=== PATIENT | female | born 1950 | race Caucasian/White ===

== ENCOUNTER 2017-05-10 09:08 | Inpatient (IN) ==
[2017-05-10] MEDS ORDERED: 0.9 % Sodium Chloride 1,000 ML ONE ×2 (10:48→12:14)
[2017-05-10] MEDS ORDERED: Heparin 1,000 UNITS/500 mL NS 0 ML ONE (12:14)
[2017-05-10] MEDS ORDERED: *HR* Heparin 10,000 UNIT/10 ML VIAL ONE (12:14)
--- NOTE | 2017-05-10 12:33 | History & Physical Report ---
Date of Encounter: 05/10/17 Time of Encounter: 12:32 24 Hour HP Update - Instructions Instructions: If the History and Physical is less than 30 days old and was completed prior to A.M. admission and or procedure and has NOT been updated on calendar day of procedure please complete this update prior to performing procedure. - Update Patient reports changes in Medical Condition: No Changes in examination, assessment, or condition: No Changes in Medication: No Preop tests/diagnostics Reviewed: Yes Surgery Remains Indicated: Yes Consent for Planned Operative Procedure(s) Verified: Yes - Pre-Operative Checklist Preoperative Checklist Indicated: No Prophylactic Antibiotic Ordered: No Home Medications Include Beta Jose Alberto: No Beta Jose Alberto Taken Today (Day of Surgery): No Beta Jose Alberto Taken Yesterday (Day Prior to Surgery): No Is VTE Prophylaxis Indicated?: NO
--- NOTE | 2017-05-10 12:33 | Pre-Sedation Evaluation ---
Pre-sedation evaluation - Pre-sedation checklist Date of procedure: 05/10/17 Procedure: FISTULOGRAM Recent Vitals: Last Vital Signs Temp 97.5 F L 05/10/17 10:24 Pulse 66 05/10/17 10:24 Resp 16 05/10/17 10:24 BP 126/54 05/10/17 10:24 Pulse Ox 96 05/10/17 10:24 H&P (including ROS) documented in medical record: Yes Previous reaction to sedatives/anesthetics: No Dietary Status: NPO after Midnight Dentition: No loose teeth or bridges ASA Classification *see protocol: CLASS III-Severe systemic disease Plan of Care: Pt appropriate candidate for procedure/moderate/conscious sedation , Risks/benefits of procedure/sedation discussed w/ patient/family
[2017-05-10] MEDS ORDERED: *HR* FentaNYL (PF) 100 MCG/2 ML VIAL ONE (13:06)
[2017-05-10] MEDS ORDERED: *HR* Midazolam HCl 2 MG/2 ML VIAL ONE (13:07)
[2017-05-10] MEDS ORDERED: Ondansetron 4 MG/2 ML VIAL IVP PRN (13:51)
[2017-05-10] MEDS ORDERED: *HR* HYDROcodone/Acet 5/325 mg TABLET PO PRN (13:51)
[2017-05-10] MEDS ORDERED: Acetaminophen 325 MG TABLET PO PRN (13:51)
--- NOTE | 2017-05-10 13:51 | Procedure Note ---
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
[2017-05-10] MEDS ORDERED: ceFAZolin 2,000 MG in D5% in Water 100 ML IVPB ONE (14:17)
--- NOTE | 2017-05-10 15:46 | Invasive Diagnostic Lab Proc ---
Name: Gurjit Schroeder Date of Study: 05/10/2017 Date: 1950 Ht: 157.5 in Medical Record#: [id number] Age: 67 Wt: 56.33653 lb Gender: Female BSA: 1.57 Order #: [id number] BMI: 22.86 Physicians Performing MD: Bolivar Jackson MD, FACS Referring MD: Nii Scott DO Referring MD: Staff Name Position Time In Keerthi Gupta RT (R) Pre-Op Nurse Xena Salazar RN Pre-Op Nurse Cassia Hoover RT (R) Scrub Sahara Suarez RN Monitor Lisbeth Medrano RN Machine Straw Hat Presser Lisbeth Medrano RN Machine Straw Hat Presser Indications AV Fistula Procedures Performed INJECT PROC FOR EXT VENOGRAPHY Pre-Procedure Checklist Informed consent is complete signed and on chart. H&P is on chart. ID band is on and ID verified with patient. Patient NPO for procedure The procedure was described for the patient and questions were answered. Blood Pressure: 126/54 ECG is on chart. Rhythm: NSR Plan of Care Patient will tolerate the procedure without complications. Adequate level of comfort will be maintained. Hemodynamics will remain stable Patient will recover from procedure without complications. Respiratory function will be maintained. Cardiac rhythm will remain stable. Patient temperature will be maintained. Patient and/or family have verbalized understanding of the procedure. Patient Education Chief Complaint/Reason for Test: Fistulagram Developmental Category: Geriatric (65+ years) Learning Barriers: None Education Needs: Procedure Education Method: Verbal Information Taught: Fistulagram Educational Evaluation: Able to repeat information Intravenous Access Time IV Size Location DC'd Fluid/Drip Rate Units RN 11:12 Started with 22g 1 " Rt Arm 0.9NaCl 25 ml/hr Xena Salazar RN Allergies SULFA (sulfonamide) PCN (penicillin) Sulfa (Sulfonamide Antibiotics) Amoxicillin NO KNOWN ALLERGIES Vital Signs Time BP Systolic BP Diastolic HR O2 Sats ASA 11:12 AM 126 54 66 96 01:10 PM 01:10 PM 01:26 PM 01:41 PM 01:42 PM 01:10 PM 158 69 78 97 01:15 PM 149 64 75 94 01:20 PM 148 64 75 94 01:25 PM 141 62 69 96 01:30 PM 150 66 72 93 01:35 PM 152 66 74 94 01:40 PM 152 65 72 92 01:45 PM 155 65 72 94 01:50 PM 153 74 76 93 02:22 PM 148 70 64 95 02:45 PM 140 70 65 98 03:08 PM 140 60 65 95 03:19 PM 151 64 66 95 03:37 PM 141 77 63 91 Procedure Medications Time Medication Dose Units Method Route 01:10 PM Oxygen 2 L/min nasal cannula 01:10 PM Versed 1 mg Intravenous 01:10 PM Fentanyl 50 mcg Intravenous 01:17 PM Lidocaine 2% 10 ml Subcutaneous 01:30 PM Fentanyl 25 mcg Intravenous ASA Classification: CLASS III- Severe systemic disease (i.e. prior AMI, diabetes with vascular complications, morbid obesity) Benjy Score Preprocedure Postprocedure Activity 2- Moves 4 extremities sustained head lift Activity 2- Moves 4 extremities sustained head lift Circulation 2- SBP +/= 20 points of pre-anesthetic level Circulation 2- SBP +/= 20 points of pre-anesthetic level Consciousness 2- Awake and alert oriented x 3 Consciousness 2- Awake and alert oriented x 3 O2 Saturation 2- Able to maintain O2 satruation of 92% on room air O2 Saturation 2- Able to maintain O2 satruation of 92% on room air Respiratory 2- Able to deep breathe and cough well Respiratory 2- Able to deep breathe and cough well Total Score 10 Total Score 10 Contrast: Isovue 300- 150ml Contrast Amount: 25 ml Fluoro Dose: 37 mGy Procedure Log Time Note Entered By 12:58 PM Cassia Hoover RT (R) Position: Scrub Time in: 12:58 [facility] 01:06 PM Sahara Suarez RN Position: Monitor [facility]: 12:58 [email or web address] Lisbeth eMdrano RN Position: Machine Straw Hat Presser Time in: 13:06 [facility] Patrick Bonilla RN Position: Machine Straw Hat Presser Time in: 13:06 [facility] PM Case delayed: previous case ran long [facility] 01:07 PM Hair removed from procedure site in holding area using clippers. Right groin prepped with Chloraprep by Cassia Hoover RT (R), safety strap applied then patient was draped. Skin intact. [facility] 12:58 PM Physician arrived [facility] 01:00 PM Meet and greet completed [facility] 01:09 PM Procedure start 13:09 [facility] PM Sign in performed according to hospital policy. [email or web address] 01:10 PM 13:10 Oxygen at 2 L/min per nasal cannula by Patrick [facility] 01:10 PM 13:10 Versed 1 mg Intravenous Given by Patrick Bonilla RN 01:10 PM 13:10 Fentanyl 50 mcg Intravenous Given by Patrick Bonilla RN 01:10 PM Time: 13:10 Is patient comfortable and pain free?: Yes [email or web address] 01:10 PM Time: 13:10LOC: 5 = Fully awake and oriented or at pre-proc level [email or web address] 01:14 PM Time out perfomed [facility] 01:17 PM 13:17 10 ml Lidocaine 2% to right groin Subcutaneous Given By Bolivar Jackson MD, FACS [facility] 01:18 PM Patient charges- Angio tray pack, Pulse Oximetry and ACIST tubing and transducer jcpaul 01:19 PM Access obtained in the right femoral artery by percutaneous puncture. 5 Fr. 10 cm Terumo [place] sheath placed in right femoral artery [facility] 01:20 PM 0.035 260cm J-wire wire utilized to assist with catheter placement jcallpaul 01:21 PM 5Fr Salmon 2 catheter inserted over the wire [facility] 01:23 PM Left subclavian angiography performed in [place] [facility] 01:25 PM 0.035 260cm [place]-stiff wire utilized to assist with catheter placement jcallnaomie 01:26 PM Time: 13:10LOC: 4 = Oriented but drowsy jcallihpaul 01:27 PM Right upper extremity angiography performed in multiple views jcallihpaul 01:31 PM 13:30 Fentanyl 25 mcg Intravenous Given by Patrick Bonilla RN 01:36 PM 5Fr Salmon 2 catheter removed [email or web address] 01:36 PM 4Fr Non-taper Angle glidecath catheter inserted jcallihpaul 01:37 PM 4Fr Non-taper Angle glidecath catheter removed [email or web address] 01:38 PM 4Fr Berenstein catheter inserted [email or web address] 01:41 PM Time: 13:26LOC: 4 = Oriented but drowsy jcallihan 01:42 PM Time: 13:10 Is patient comfortable and pain free?: Yes [email or web address] 01:44 PM wire and catheter removed jcallihan 12:44 PM catheter removed jcallihan 01:45 PM Procedure completed at 13:45 [email or web address] 01:47 PM Sign Out completed: Radiation Dose 37.19 mGy Fluoro Time: 5.9 minutes. Isovue 370- 200ml contrast 25 ml given by Bolivar Jackson MD, FACS. Complications: None. Confirmed administered medications:Yes jcallihan 01:47 PM Isovue 300- 150ml,1 bottle(s) used. [email or web address] 01:48 PM Post Blood Pressure: 155/65 jcallihan 01:48 PM Post EKG: NSR jcallihan 01:49 PM 13:48 Post Pulses: Bilateral DP & PT Doppler. [email or web address] 01:49 PM Education needs: Procedure, Plan of Care, and Disease Process jcallihan 01:49 PM Learning barriers: None jcallihan 01:49 PM Education methods: Verbal jcallihan 01:49 PM Education evaluation: Able to repeat information jcallihan 01:49 PM Patient pain level 0/10 [email or web address] 01:50 PM Site status No bleeding/hematoma - Rt Groin as reported by Cassia Hoover RT (R) at 13:49 [email or web address] 01:50 PM Sheath left in place to be pulled on floor/holding area jcallihan 01:50 PM Opsite applied jcallihan 01:50 PM Pt taken to Holding room Room# jcallihan 01:52 PM Family placed in consult room. [email or web address] 01:52 PM Complications: None jcallihan 01:53 PM Isovue 300- 150ml contrast 25 ml given by Bolivar Jackson MD, FACS jcallihan 01:53 PM Radiation Dose 37.19 mGy jcallihan 01:54 PM Patient out of room 13:54 [email or web address] 01:57 PM Time: 13:42 Is patient comfortable and pain free?: Yes [email or web address] 01:57 PM Time: 13:42LOC: 4 = Oriented but drowsy jcallihan 12:47 PM CathStat 01:09 PM Case Start 01:09 PM Vitals capture started with the following parameters, Patient=Adult, Interval=5 min, Initial Fuxunovx=780 mmHg, Deflation Rate=5 mmHg, Cuff placed on Right Arm 01:10 PM HR=78 bpm, VYGO=368/69 mmhg, SpO2=97.0 %, Resp=18 B/min, Comment=nsr 01:12 PM Recorded ECG: HR=79 Condition=Condition 1 01:13 PM PVIStat 01:15 PM HR=75 bpm, YHSM=826/64 mmhg, SpO2=94.0 %, Resp=19 B/min, Comment=nsr 01:20 PM HR=75 bpm, MLJX=495/64 mmhg, SpO2=94.0 %, Resp=19 B/min, Comment=nsr 01:25 PM HR=69 bpm, NCHN=011/62 mmhg, SpO2=96.0 %, Resp=12 B/min, Comment=nsr 01:30 PM HR=72 bpm, GMRE=003/66 mmhg, SpO2=93.0 %, Resp=13 B/min, Comment=nsr 01:35 PM HR=74 bpm, GFFB=640/66 mmhg, SpO2=94.0 %, Resp=18 B/min, Comment=nsr 01:40 PM HR=72 bpm, RCXZ=046/65 mmhg, SpO2=92.0 %, Resp=13 B/min, Comment=nsr 01:45 PM HR=72 bpm, KNEX=079/65 mmhg, SpO2=94.0 %, Resp=15 B/min, Comment=nsr 01:48 PM Recorded ECG: HR=77 Condition=Condition 1 01:50 PM HR=76 bpm, KPJW=710/74 mmhg, SpO2=93.0 %, Resp=22 B/min, Comment=nsr 02:05 PM Arterial sheath pulled using manual compression and V+Pad for 15 minutes by Keerthi Gupta RT (R) [email or web address] 02:20 PM Site status No bleeding/hematoma - Rt Groin as reported by Keerthi Gupta RT (R) at 14:20 [email or web address] 02:20 PM Opsite applied [email or web address] 03:36 PM Site status No bleeding/hematoma - Rt Groin as reported by Keerthi Gupta RT (R) at 15:36 [email or web address] 03:36 PM Report given to Pedrito RN. Pt taken to [facility], Room # 18 15:36 [email or web address] 03:37 PM Patient out of room 15:37 [email or web address] Post Procedure Information Blood Pressure: 155/65 mmHg Rhythm: NSR Report Given To: Vivi Magaña Checks Time Location Status Staff Sheath In? Note 3:36:00 PM Rt Groin No bleeding/ No Hematoma Keerthi Gupta RT (R) 2:20:00 PM Rt Groin No bleeding/ No Hematoma Keerthi Gupta RT (R) 05/10/2017 2:45:00 PM Rt Groin No bleeding/ No Hematoma Keerthi Gupta RT (R) 05/10/2017 3:06:00 PM Rt Groin No bleeding/ No Hematoma Keerthi Gupta RT (R) 05/10/2017 3:37:00 PM Rt Groin No bleeding/ No Hematoma Keerthi Gupta RT (R) 05/10/2017 3:37:00 PM Pulses Time Site Pre Procedure Post Procedure Note 05/10/2017 11:12:00 AM Bilateral DP & PT Doppler 05/10/2017 11:12:00 AM Rt Radial 2+ 05/10/2017 11:12:00 AM Lt Radial Doppler 1:48:00 PM Bilateral DP & PT Doppler 05/10/2017 2:21:00 PM Bilateral DP & PT Doppler 05/10/2017 2:45:00 PM Bilateral DP & PT Doppler 05/10/2017 3:08:00 PM Bilateral DP & PT Doppler 05/10/2017 3:19:00 PM Bilateral DP & PT Doppler 05/10/2017 3:37:00 PM Bilateral DP & PT Doppler Updated by RT Yasmine(Shirley) on 05/10/2017 3:38:00 PM electronically signed on 05/10/2017 3:39:04 PM with status of Final
--- NOTE | 2017-05-10 16:19 | Invasive Diagnostic Lab Proc ---
Name: Gurjit Schroeder Date of Study: 05/10/2017 Date: 1950 Ht: 157.5 in Medical Record#: [id number] Age: 67 Wt: 56.75145 lb Gender: Female BSA: 1.57 Order #: [id number] BMI: 22.86 Physicians Performing MD: Bolivar Jackson MD, FACS Referring MD: Nii Scott DO Referring MD: Staff Name Position Time In Keerthi Gupta RT (R) Pre-Op Nurse Xena Salazar RN Pre-Op Nurse Cassia Hoover RT (R) Scrub Sahara Saurez RN Monitor Lisbeth Medrano RN Cbx Operator Lisbeth Medrano RN Cbx Operator Indications AV Fistula Procedures Performed ANGIOGRAM, EXT UNILAT S&I CATH PLCT 2/ ORD THOR/BRA ADD Pre-Procedure Checklist Informed consent is complete signed and on chart. H&P is on chart. ID band is on and ID verified with patient. Patient NPO for procedure The procedure was described for the patient and questions were answered. Blood Pressure: 126/54 ECG is on chart. Rhythm: NSR Plan of Care Patient will tolerate the procedure without complications. Adequate level of comfort will be maintained. Hemodynamics will remain stable Patient will recover from procedure without complications. Respiratory function will be maintained. Cardiac rhythm will remain stable. Patient temperature will be maintained. Patient and/or family have verbalized understanding of the procedure. Patient Education Chief Complaint/Reason for Test: Fistulagram Developmental Category: Geriatric (65+ years) Learning Barriers: None Education Needs: Procedure Education Method: Verbal Information Taught: Fistulagram Educational Evaluation: Able to repeat information Intravenous Access Time IV Size Location DC'd Fluid/Drip Rate Units RN 11:12 Started with 22g 1 " Rt Arm 0.9NaCl 25 ml/hr Xena Salazar RN Allergies SULFA (sulfonamide) PCN (penicillin) Sulfa (Sulfonamide Antibiotics) Amoxicillin NO KNOWN ALLERGIES Vital Signs Time BP Systolic BP Diastolic HR O2 Sats ASA 11:12 AM 126 54 66 96 01:10 PM 01:10 PM 01:26 PM 01:41 PM 01:42 PM 01:10 PM 158 69 78 97 01:15 PM 149 64 75 94 01:20 PM 148 64 75 94 01:25 PM 141 62 69 96 01:30 PM 150 66 72 93 01:35 PM 152 66 74 94 01:40 PM 152 65 72 92 01:45 PM 155 65 72 94 01:50 PM 153 74 76 93 02:22 PM 148 70 64 95 02:45 PM 140 70 65 98 03:08 PM 140 60 65 95 03:19 PM 151 64 66 95 03:37 PM 141 77 63 91 Procedure Medications Time Medication Dose Units Method Route 01:10 PM Oxygen 2 L/min nasal cannula 01:10 PM Versed 1 mg Intravenous 01:10 PM Fentanyl 50 mcg Intravenous 01:17 PM Lidocaine 2% 10 ml Subcutaneous 01:30 PM Fentanyl 25 mcg Intravenous ASA Classification: CLASS III- Severe systemic disease (i.e. prior AMI, diabetes with vascular complications, morbid obesity) Benjy Score Preprocedure Postprocedure Activity 2- Moves 4 extremities sustained head lift Activity 2- Moves 4 extremities sustained head lift Circulation 2- SBP +/= 20 points of pre-anesthetic level Circulation 2- SBP +/= 20 points of pre-anesthetic level Consciousness 2- Awake and alert oriented x 3 Consciousness 2- Awake and alert oriented x 3 O2 Saturation 2- Able to maintain O2 satruation of 92% on room air O2 Saturation 2- Able to maintain O2 satruation of 92% on room air Respiratory 2- Able to deep breathe and cough well Respiratory 2- Able to deep breathe and cough well Total Score 10 Total Score 10 Contrast: Isovue 300- 150ml Contrast Amount: 25 ml Fluoro Dose: 37 mGy Procedure Log Time Note Entered By 12:58 PM Cassia Hoover RT (R) Position: Scrub Time in: 12:[address] [facility] PM Sahara Suarez RN Position: Monitor Time in: 12:[address] [facility] 01[facility]06 PM Lisbeth Medrano RN Position: Cbx Operator Time in: 13: [facility] PM Patrick Bonilla RN Position: Cbx Operator Time in: 13:06 [facility] 01:07 PM Case delayed: previous case ran long [facility] 01:07 PM Hair removed from procedure site in holding area using clippers. Right groin prepped with Chloraprep by Cassia Hoover RT (R), safety strap applied then patient was draped. Skin intact. [facility] 12:58 PM [facility] PM Harshal and ned [facility] PM Procedure start 13:[address] [facility] PM Sign in performed according to hospital policy. [facility] 01:10 PM 13:10 Oxygen at 2 L/min per nasal cannula by [facility] 01:10 PM 13:10 Versed 1 mg Intravenous Given by Patrick Bonilla RN 01:10 PM 13:10 Fentanyl 50 mcg Intravenous Given by Patrick [facility]illa [facility] 01:10 PM Time: 13:10 Is patient comfortable and pain free?: Yes [facility] PM Time: 13:10LOC: 5 = Fully awake and oriented or at pre-proc level [facility] 01[facility]14 PM Time out perfomed [facility] 01:17 PM 13:17 10 ml Lidocaine 2% to right groin Subcutaneous Given By Bolivar Jackson MD, FACS [facility] 01:18 PM Patient charges- Angio tray pack, Pulse Oximetry and ACIST tubing and transducer [facility] 01[facility] PM Access obtained in the right femoral artery by percutaneous puncture. 5 Fr. 10 cm Terumo [place] sheath placed in right femoral artery [facility] 01:20 PM 0.035 260cm J-wire wire utilized to assist with catheter placement [facility] 01:21 PM 5Fr Salmon 2 catheter inserted over the wire [facility] 01:23 PM Left subclavian angiography performed in KAYLEN [facility] 01:25 PM 0.035 260cm [place]-stiff wire utilized to assist with catheter placement [facility] 01:26 PM Time: 13:10LOC: 4 = Oriented but drowsy [facility] 01:27 PM Right upper extremity angiography performed in multiple views [facility] 01:31 PM 13:30 Fentanyl 25 mcg Intravenous Given by Patrick [facility] 01:36 PM 5Fr Salmon 2 catheter [facility] 01:36 PM 4Fr Non-taper Angle glidecath catheter inserted [facility] 01:37 PM 4Fr Non-taper Angle glidecath catheter [facility] 01:38 PM 4Fr Berenstein catheter inserted [facility] 01:41 PM Time: 13:26LOC: 4 = Oriented but drowsy jcallihan 01:42 PM Time: 13:10 Is patient comfortable and pain free?: Yes jcallihan 01:44 PM wire and catheter removed jcallihan 12:44 PM catheter removed jcallihan 01:45 PM Procedure completed at 13:45 jcallihan 01:47 PM Sign Out completed: Radiation Dose 37.19 mGy Fluoro Time: 5.9 minutes. Isovue 370- 200ml contrast 25 ml given by Bolivar Jackson MD, FACS. Complications: None. Confirmed administered medications:Yes jcallihan 01:47 PM Isovue 300- 150ml,1 bottle(s) used. jcallihan 01:48 PM Post Blood Pressure: 155/65 jcallihan 01:48 PM Post EKG: NSR jcallihan 01:49 PM 13:48 Post Pulses: Bilateral DP & PT Doppler. jcallihan 01:49 PM Education needs: Procedure, Plan of Care, and Disease Process jcallihan 01:49 PM Learning barriers: None jcallihan 01:49 PM Education methods: Verbal jcallihan 01:49 PM Education evaluation: Able to repeat information jcallihan 01:49 PM Patient pain level 0/10 jcallihan 01:50 PM Site status No bleeding/hematoma - Rt Groin as reported by Cassia Hoover RT (R) at 13:49 [email or web address] 01:50 PM Sheath left in place to be pulled on floor/holding area jcallihan 01:50 PM Opsite applied jcallihan 01:50 PM Pt taken to Holding room Room# jcallihan 01:52 PM Family placed in consult room. [email or web address] 01:52 PM Complications: None jcallihan 01:53 PM Isovue 300- 150ml contrast 25 ml given by Bolivar Jackson MD, FACS jcallihan 01:53 PM Radiation Dose 37.19 mGy jcallihan 01:54 PM Patient out of room 13:54 jcallihan 01:57 PM Time: 13:42 Is patient comfortable and pain free?: Yes [email or web address] 01:57 PM Time: 13:42LOC: 4 = Oriented but drowsy jcallihan 12:47 PM CathStat 01:09 PM Case Start 01:09 PM Vitals capture started with the following parameters, Patient=Adult, Interval=5 min, Initial Hhcnhfhi=154 mmHg, Deflation Rate=5 mmHg, Cuff placed on Right Arm 01:10 PM HR=78 bpm, FGYO=368/69 mmhg, SpO2=97.0 %, Resp=18 B/min, Comment=nsr 01:12 PM Recorded ECG: HR=79 Condition=Condition 1 01:13 PM PVIStat 01:15 PM HR=75 bpm, FEWC=138/64 mmhg, SpO2=94.0 %, Resp=19 B/min, Comment=nsr 01:20 PM HR=75 bpm, MRPY=987/64 mmhg, SpO2=94.0 %, Resp=19 B/min, Comment=nsr 01:25 PM HR=69 bpm, WURK=132/62 mmhg, SpO2=96.0 %, Resp=12 B/min, Comment=nsr 01:30 PM HR=72 bpm, FLJF=251/66 mmhg, SpO2=93.0 %, Resp=13 B/min, Comment=nsr 01:35 PM HR=74 bpm, EUKT=241/66 mmhg, SpO2=94.0 %, Resp=18 B/min, Comment=nsr 01:40 PM HR=72 bpm, ZGNS=914/65 mmhg, SpO2=92.0 %, Resp=13 B/min, Comment=nsr 01:45 PM HR=72 bpm, WRZG=546/65 mmhg, SpO2=94.0 %, Resp=15 B/min, Comment=nsr 01:48 PM Recorded ECG: HR=77 Condition=Condition 1 01:50 PM HR=76 bpm, SYPR=760/74 mmhg, SpO2=93.0 %, Resp=22 B/min, Comment=nsr 02:05 PM Arterial sheath pulled using manual compression and V+Pad for 15 minutes by Keerthi Gupta RT (R) [email or web address] 02:20 PM Site status No bleeding/hematoma - Rt Groin as reported by Keerthi Gupta RT (R) at 14:20 [email or web address] 02:20 PM Opsite applied [email or web address] 03:36 PM Site status No bleeding/hematoma - Rt Groin as reported by Keerthi Gupta RT (R) at 15:36 [email or web address] 03:36 PM Report given to Pedrito ZAVALA. Pt taken to E, Room # 18 15:36 [email or web address] 03:37 PM Patient out of room 15:37 [email or web address] 04:12 PM Diagram Region: Upper Extremity/Thoracic Arteries Anatomical Region: UE/Thoracic-Twu535% Lesion in Proximal Left Brachial Intervention done: 0 (1=yes, 0=no) pvannoy Peripheral Anatomy Vessel Pathology Lesion Stenosis Aneurysm Diameter Thrombus Type Left Brachial Lesion 100 Post Procedure Information Blood Pressure: 155/65 mmHg Rhythm: NSR Report Given To: Vivi Site Checks Time Location Status Staff Sheath In? Note 3:36:00 PM Rt Groin No bleeding/ No Hematoma Keerthi Gupta RT (R) 2:20:00 PM Rt Groin No bleeding/ No Hematoma Keerthi Gupta RT (R) 05/10/2017 2:45:00 PM Rt Groin No bleeding/ No Hematoma Keerthi Gupta RT (R) 05/10/2017 3:06:00 PM Rt Groin No bleeding/ No Hematoma Keerthi Gupta RT (R) 05/10/2017 3:37:00 PM Rt Groin No bleeding/ No Hematoma Keerthi Gupta RT (R) 05/10/2017 3:37:00 PM Pulses Time Site Pre Procedure Post Procedure Note 05/10/2017 11:12:00 AM Bilateral DP & PT Doppler 05/10/2017 11:12:00 AM Rt Radial 2+ 05/10/2017 11:12:00 AM Lt Radial Doppler 1:48:00 PM Bilateral DP & PT Doppler 05/10/2017 2:21:00 PM Bilateral DP & PT Doppler 05/10/2017 2:45:00 PM Bilateral DP & PT Doppler 05/10/2017 3:08:00 PM Bilateral DP & PT Doppler 05/10/2017 3:19:00 PM Bilateral DP & PT Doppler 05/10/2017 3:37:00 PM Bilateral DP & PT Doppler Updated by Sahara Suarez RN on 05/10/2017 4:13:08 PM electronically signed on 05/10/2017 4:13:49 PM with status of Final
[2017-05-10] MEDS ORDERED: Furosemide 20 MG TABLET PO PRN (17:07)
[2017-05-10] MEDS ORDERED: Nitroglycerin 0.4 MG TAB.SUBL SL PRN (17:14)
[2017-05-10] MEDS: 0.9 % Sodium Chloride 1,000 ML IVC SCH ×2 (17:19→18:35)
[2017-05-10] MEDS ORDERED: FLUARIX QUAD 2017-18 36MOS UP/PF 0.5 ML SYRINGE IM ONE (17:34)
[2017-05-10] MEDS ORDERED: NIFEdipine XL (24 HR) 30 MG TAB.ER.24 PO SCH (18:00)
[2017-05-10] MEDS: Nicotine 21 MG PATCH.TD24 TD SCH (18:34)
[2017-05-10] MEDS: *HR* Acetylcysteine 20% 600 MG/3 ML ORAL SYRINGE PO SCH (18:43)
[2017-05-10] MEDS: *HR* LORazepam 1 MG TABLET PO PRN (20:33)
--- NOTE | 2017-05-10 20:47 | Anesthesia Evaluation PreOp ---
Date of Encounter: 05/10/17 Time of Encounter: 20:46 - Past History Planned Operation: Left brachial artery embolectomy Cardiac History: CHF, HTN, Hyperlipidemia, Other (peripheral vascular disease) Pulmonary History: Smoker SCALLOP BINDER History: Denies Any Significant HX Other Medical History: Renal (Stage IV ckd - never been on dialysis), Thyroid Anesthesia History: No Prior Anesthetic Complications, Past Anesthesia (AV fistula creation) Alcohol Use: none Drug use: none Medications and Allergies Aspirin 81 mg PO DAILY 05/10/17 [History] Atorvastatin [Lipitor] 40 mg PO HS 05/10/17 [History] Carvedilol [Coreg] 25 mg PO BID 05/10/17 [History] Cholecalciferol (Vitamin D3) [Vitamin D3] 5,000 unit PO DAILY 05/10/17 [History] Furosemide [Lasix] 20 mg PO DAILY 05/10/17 [History] Isosorbide MONOnitrate (24 HR) [Imdur] 60 mg PO DAILY 05/10/17 [History] LORazepam [Ativan] 1 mg PO BID 05/10/17 [History] Levothyroxine [Synthroid] 50 mcg PO 0630 05/10/17 [History] Magnesium Oxide [Magnesium] 400 mg PO DAILY 05/10/17 [History] NIFEdipine [Adalat cc] 30 mg PO QPM 05/10/17 [History] NIFEdipine [Adalat cc] 60 mg PO DAILY 05/10/17 [History] Nitroglycerin [Nitrostat] 0.4 mg SL DAILY 05/10/17 [History] Potassium Chloride [K-Tab ER] 10 meq PO DAILY PRN 05/10/17 [History] 3 Allergy/AdvReac Type Severity Reaction Status Date / Time Amoxicillin Allergy Difficulty Verified 04/19/17 14:33 Swallowing Sulfa (Sulfonamide Allergy Difficulty Verified 04/19/17 14:33 Antibiotics) Swallowing - Meds/Allergy Pre-op Review Medications Reviewed: Yes Allergies Reviewed: Yes Beta Blockers on Current Med List: Yes (coreg) Anesthesia Results - Labs Laboratory Tests 05/07/17 05/07/17 05/07/17 15:34 15:34 15:34 WBC 7.6 Hgb 12.7 Hct 37.5 Plt Count 264 PT 12.4 H INR 1.1 APTT 44.5 H Sodium 138 Potassium 4.4 Chloride 106 Carbon Dioxide 22 BUN 30 H Creatinine 1.98 H Est GFR ( Amer) 30 L Est GFR (Non-Af Amer) 25 L BUN/Creatinine Ratio 15 Glucose 89 Calculated Osmolality 292 Calcium 9.7 - Imaging EKG: report reviewed, image reviewed (SINUS RHYTHM POSSIBLE INFERIOR MYOCARDIAL INFARCTION, OF INDETERMINATE AGE MODERATE T-WAVE ABNORMALITY, CONSIDER LATERAL ISCHEMIA) Anesthesia Exam Last Vital Signs Temp 98.1 F 05/10/17 16:50 Pulse 66 05/10/17 16:50 Resp 12 05/10/17 16:50 BP 157/63 05/10/17 16:50 Pulse Ox 92 05/10/17 16:50 Weight: 57 kg - HEENT Pupil (Motor): Pupils equal, EOMI Mallampati: II Teeth: Poor dentition Oral Opening: Greater than 3 - SCALLOP BINDER LOC: Oriented - Cardiac Rhythm: Regular Murmur: Systolic (low grade) - Pulmonary Breath Sounds: bilateral Clear Respiratory Effort: Symmetrical Anesthesia Assess/Plan ASA Score: 3 Modified Nichole Scale for Level of Consciousness: Cooperative, oriented, and tranquil Anesthetic Plan: General Monitoring Plan: Standard Monitors Recovery Plan: PACU
[2017-05-11] MEDS: *HR* Acetylcysteine 20% 600 MG/3 ML ORAL SYRINGE PO SCH (02:00)
[2017-05-11] MEDS ORDERED: Cholecalciferol (D-3) 1,000 UNIT TABLET PO SCH (09:00)
[2017-05-11] MEDS ORDERED: Magnesium Oxide 400 MG TABLET PO SCH (09:00)
[2017-05-11] MEDS ORDERED: Isosorbide MONOnitrate (24 HR) 60 MG TAB.ER.24H PO SCH (09:00)
[2017-05-11] MEDS ORDERED: NIFEdipine XL (24 HR) 60 MG TAB.ER.24 PO SCH (09:00)
[2017-05-11] MEDS ORDERED: Aspirin 81 MG TAB.CHEW PO SCH (09:00)
[2017-05-11] MEDS: Nicotine 21 MG PATCH.TD24 TD SCH (09:08)
[2017-05-11] MEDS: *HR* LORazepam 1 MG TABLET PO PRN (09:26)
--- NOTE | 2017-05-11 10:49 | Nephrology Consult Note ---
Date of Encounter: 05/11/17 Time of Encounter: 10:44 Assessment and Plan (1) Ischemia of left upper extremity Current Visit: Yes Status: Acute Agree with giving Mucomyst for renal protection Gentle fluid hydration for renal protection Surgery scheduled for today (2) Chronic kidney disease, stage IV (severe) Current Visit: Yes Status: Acute see above BMP today Avoid nephrotoxins if possible History of Present Illness - Reason for Consult Consult date: 05/11/17 - Chief Complaint left arm pain, CKD stage 4 - History of Present Illness Ms Schroeder is a 67 year old female who follows with Dr Patterson for her CKD stage 4. She has been admitted for a left brachial artery embolectomy scheduled for later today after having a fistulogram showing a brachial artery embolus. Past medical history include thyroid disease, CHF, HTN, hyperlipidemia, PVD. Past Med Surg Social Fam HX - Past Medical History Medical history: non-contributory, CHF, hyperlipidemia, hypertension, renal disease, thyroid disease Psychiatric history: anxiety - Social History Smoking Status: Current every day smoker Packs per day: 1 Smokeless Tobacco Status: No Alcohol use: none Drug use: none Medications and Allergies Aspirin 81 mg PO DAILY 05/10/17 [History] Atorvastatin [Lipitor] 40 mg PO HS 05/10/17 [History] Carvedilol [Coreg] 25 mg PO BID 05/10/17 [History] Cholecalciferol (Vitamin D3) [Vitamin D3] 5,000 unit PO DAILY 05/10/17 [History] Furosemide [Lasix] 20 mg PO DAILY 05/10/17 [History] Isosorbide MONOnitrate (24 HR) [Imdur] 60 mg PO DAILY 05/10/17 [History] LORazepam [Ativan] 1 mg PO BID 05/10/17 [History] Levothyroxine [Synthroid] 50 mcg PO 0630 05/10/17 [History] Magnesium Oxide [Magnesium] 400 mg PO DAILY 05/10/17 [History] NIFEdipine [Adalat cc] 30 mg PO QPM 05/10/17 [History] NIFEdipine [Adalat cc] 60 mg PO DAILY 05/10/17 [History] Nitroglycerin [Nitrostat] 0.4 mg SL DAILY 05/10/17 [History] Potassium Chloride [K-Tab ER] 10 meq PO DAILY PRN 05/10/17 [History] 3 Allergy/AdvReac Type Severity Reaction Status Date / Time Amoxicillin Allergy Difficulty Verified 04/19/17 14:33 Swallowing Sulfa (Sulfonamide Allergy Difficulty Verified 04/19/17 14:33 Antibiotics) Swallowing Review of Systems All Systems: reviewed and no additional remarkable complaints except as stated Constitutional: no fever(s), no malaise Cardiovascular: no chest pain, no dyspnea Respiratory: no cough Gastrointestinal: no nausea, no vomiting Musculoskeletal: left: wrist pain (left arm pain ) Exam - Vital Signs Vital signs: Initial Vital Signs Temp Pulse Resp BP Pulse Ox 97.5 F L 66 16 126/54 96 05/10/17 10:24 05/10/17 10:24 05/10/17 10:24 05/10/17 10:24 05/10/17 10:24 Vital Signs - Last 8 Hours Temp Pulse Resp BP Pulse Ox 05/11/17 06:31 98.2 F 68 12 148/64 92 05/11/17 04:43 68 16 150/79 97 Intake and Output 05/10/17 05/11/17 05/11/17 23:59 07:59 15:59 Intake Total 120 / 120 Output Total 300 / 300 150 / 150 Balance -180 / -180 -150 / -150 Intake: Oral 120 / 120 Output: Urine 300 / 300 150 / 150 Other: Meal Dinner Percent of Meal Consumed 80% # Voids 1 1 Weight 56.6 kg - General Appearance General appearance: well-developed, well-nourished EENT: ATNC, mucous membranes moist, hearing intact, vision intact Neck: supple Respiratory: clear Cardiology: no edema, normal S1, normal S2 - Dialysis Access Dialysis Vascular Access: Arteriovenous Fistula Gastrointestinal: no tenderness, no guarding Integumentary: warm and dry Neurologic: alert and oriented x3 Psychiatric: mood/affect appropriate, cooperative Consult Discharge Plan - Plan Referrals: Nii Scott DO [Primary Care Provider] -
[2017-05-11 11:25] LABS: Calcium 8.7 mg/dL (8.6-10.8); Potassium 4.2 mEq/L (3.5-4.5)
[2017-05-11] MEDS ORDERED: *HR* FentaNYL (PF) 100 MCG/2 ML VIAL ONE (14:46)
[2017-05-11] MEDS ORDERED: Dexamethasone 4 MG/ML VIAL ONE (14:46)
[2017-05-11] MEDS ORDERED: Lidocaine -MPF 4% 5 ML AMPUL ONE (14:46)
[2017-05-11] MEDS ORDERED: *HR* Succinylcholine 200 MG/10 ML VIAL IVP ONE (14:46)
[2017-05-11] MEDS ORDERED: Ondansetron 4 MG/2 ML VIAL ONE (14:46)
[2017-05-11] MEDS ORDERED: *HR* Propofol 200 MG/20 ML VIAL IVP ONE (14:46)
[2017-05-11] MEDS ORDERED: *HR* Midazolam HCl 2 MG/2 ML VIAL ONE (14:46)
[2017-05-11] MEDS ORDERED: Lidocaine -MPF 2% 2 ML VIAL ONE (14:46)
[2017-05-11] MEDS ORDERED: *HR* Rocuronium Bromide 50 MG/5 ML VIAL ONE (14:47)
[2017-05-11] MEDS ORDERED: Ipratropium/Albuterol Neb 3 ML ONE (14:57)
[2017-05-11] MEDS ORDERED: Heparin 1,000 UNITS/500 mL NS 500 ML ONE (14:58)
[2017-05-11] MEDS ORDERED: Lidocaine 1% 20 ML MDV ONE (14:58)
[2017-05-11] MEDS ORDERED: EPHEDrine 50 MG/ML VIAL ONE (15:30)
[2017-05-11] MEDS ORDERED: *HR* Heparin 5,000 UNIT/ML VIAL ONE (17:29)
--- NOTE | 2017-05-11 17:29 | Operative Note ---
Date of procedure: 05/11/17 Pre-op diagnosis: ischemic left arm Post-op diagnosis: same Procedure: left brachial/ulnar/radial embolectomy Complications: none Anesthesia: YGA Surgeon: Bolivar Jackson Estimated blood loss (cc): 75 Specimen: left brachial embolus Condition: stable Disposition: PACU Procedure in Detail: History Mrs. Schroeder is a 67-year-old white female who has stage IV chronic kidney disease. She had undergone creation of a left antecubital AV fistula approximately year and a half ago. In late March she had some irritation and swelling and redness to this area. She eventually went to interventional radiology in early April. She had a fistulogram performed as well as a balloon angioplasty of the cephalic vein runoff and thrombo-lysis. The patient developed pain in the left arm during the procedure. This persisted. She was in the office to see me late last week because of this persistent pain. I recommended an angiogram which was performed yesterday. The angiogram demonstrated occlusion of the brachial artery with no contrast in the radial vessel or ulnar vessel. Patient was thus admitted and was taken to surgery for an urgent operation today to alleviate her left upper extremity ischemia. Procedure After informed consent was obtained the patient was taken to the operating room. General endotracheal anesthesia was established. The left upper extremity was sterilely prepped and draped. A timeout protocol was observed. An oblique incision was made on the volar surface of the proximal forearm distal to the antecubital incision over the AV fistula was located. Dissection was carried down to reveal the brachial artery and the brachial artery bifurcation. There is a significant amount of inflammation surrounding the brachial artery and the bifurcation. There are no palpable pulse or Doppler signal at the distal brachial artery or in the proximal forearm vessels. Dissection was then made of these vessels and selective control obtained. Heparin was given a dose of 4000 units intravenously. After 3 minute delay a transverse arteriotomy was made over the distal brachial artery. Upon opening the vessel chronic thrombus and debris was found that was wedged into the brachial bifurcation. This material was removed with pickups. Then a 3 Danish Kay catheter was inserted into the radial artery which extended into the hand. After this was passed a small amount of debris was removed and backbleeding was established. This vessel was then flushed with heparinized saline. Attention was then directed to the radial and interosseous vessel. 2 and 3 Danish Kay catheters were passed and this vessel but they were unable to be passed any significant distance due to what appeared to be chronic occlusion. Some backbleeding was established from the radial artery. The 3 Danish Kay catheter was then passed retrograde into the proximal brachial artery. No further thrombus was removed with excellent pulsatile flow was achieved. Heparin saline was then back flushed into the brachial artery. The arteriotomy was then closed using a running 6-0 Prolene suture. After appropriate backbleeding and flushing the artery was opened. Pulsatile flow was then restored into the left forearm and hand. Doppler signals were identified over the distal left radial artery and in the midportion of the forearm over the ulnar artery. The fingertips were pink. The wound was then irrigated and hemostasis achieved. The wound was then closed in layers using absorbable suture. Dry sterile dressings were applied. The patient was excreted in the operating room. She was taken to the recovery room in stable condition. There were no intraoperative complications. Specimen of the brachial artery embolus was submitted for evaluation and pathology.
[2017-05-11] MEDS ORDERED: *HR* Morphine 2 MG/ML SYRINGE IVP PRN ×2 (18:08)
[2017-05-11] MEDS ORDERED: Naloxone 0.4 MG/ML INJ IVP PRN (18:08)
[2017-05-11] MEDS ORDERED: NIFEdipine XL (24 HR) 30 MG TAB.ER.24 PO SCH (18:08)
[2017-05-11] MEDS: *HR* LORazepam 1 MG TABLET PO SCH (20:24)
[2017-05-12] MEDS ORDERED: ceFAZolin 2,000 MG in D5% in Water 100 ML IVPB SCH
[2017-05-12 03:52] LABS: Basophils % 0.1 %; Hematocrit 34.9 % (35.3-44.9); Hemoglobin 11.5 g/dL (11.5-15.4); Immature Granulocytes % 0.4 % (0-4); Lymphocytes # 0.8 K/mcL (0.6-4.6); Lymphocytes % 10.6 %; Mean Corpuscular Hemoglobin 31.6 pg (28.0-33.3); Mean Corpuscular Volume 95.9 fL (83.0-100.0); Mean Platelet Volume 11.2 fL (9.4-12.4); Monocytes # 0.1 K/mcL (0.0-1.3); Monocytes % 1.2 %; Neutrophils # 6.6 K/mcL (1.6-8.9); Platelet Count 207 K/mcL (140-400); Red Blood Count 3.64 M/mcL (3.82-4.97); Red Cell Distribution Width 13.7 % (11.5-14.5); Segmented Neutrophils % 87.7 %
[2017-05-12 04:05] LABS: Calcium 8.7 mg/dL (8.6-10.8); Potassium 4.4 mEq/L (3.5-4.5)
[2017-05-12] MEDS: *HR* LORazepam 1 MG TABLET PO SCH (07:56)
--- NOTE | 2017-05-12 08:37 | Discharge Summary ---
Date of Encounter: 05/12/17 Time of Encounter: 08:34 - Discharge Diagnosis (1) Chronic kidney disease, stage IV (severe) Priority: Secondary Status: Chronic Comments: Patient has stage IV chronic kidney disease. Patient is being managed under medical care. She has never required dialysis to this point. (2) Ischemia of left upper extremity Priority: Primary Status: Acute Comments: Patient developed ischemia of left upper extremity following interventional radiology procedure for balloon angioplasty of cephalic vein. Patient was eventually referred to the vascular surgery clinic. Patient was seen last . Patient had an angiogram performed Wednesday. This led to the confirmation of my clinical diagnosis of brachial artery embolus. The patient was taken to the operating room yesterday. A successful brachial embolectomy was performed. Munith fit for discharge today. - Discharge Medications Prescriptions: HYDROcodone/Acet 5/325 mg [[place] 5-325 mg] 1 tab PO Q6H PRN #10 tab PRN Reason: Pain Home Medications: Aspirin 81 mg PO DAILY 05/10/17 [History] Atorvastatin [Lipitor] 40 mg PO HS 05/10/17 [History] Carvedilol [Coreg] 25 mg PO BID 05/10/17 [History] Cholecalciferol (Vitamin D3) [Vitamin D3] 5,000 unit PO DAILY 05/10/17 [History] Furosemide [Lasix] 20 mg PO DAILY 05/10/17 [History] Isosorbide MONOnitrate (24 HR) [Imdur] 60 mg PO DAILY 05/10/17 [History] LORazepam [Ativan] 1 mg PO BID 05/10/17 [History] Levothyroxine [Synthroid] 50 mcg PO 0630 05/10/17 [History] Magnesium Oxide [Magnesium] 400 mg PO DAILY 05/10/17 [History] NIFEdipine [Adalat cc] 30 mg PO QPM 05/10/17 [History] NIFEdipine [Adalat cc] 60 mg PO DAILY 05/10/17 [History] Nitroglycerin [Nitrostat] 0.4 mg SL DAILY 05/10/17 [History] Potassium Chloride [K-Tab ER] 10 meq PO DAILY PRN 05/10/17 [History] HYDROcodone/Acet 5/325 mg [[place] 5-325 mg] 1 tab PO Q6H PRN #10 tab 05/12/17 [Rx ] Allergies/Adverse Reactions: 3 Allergy/AdvReac Type Severity Reaction Status Date / Time Amoxicillin Allergy Difficulty Verified 04/19/17 14:33 Swallowing Sulfa (Sulfonamide Allergy Difficulty Verified 04/19/17 14:33 Antibiotics) Swallowing Procedures/tests Complete & Pending: Procedures Performed prior 72 hours Category Date Time Status CL Peripheral Angiography [CL] Routine Rheologist 05/10/17 10:56 Completed Primary care physician: Nii Scott DO Consults: Nephrology Procedure(s) Performed: Left upper extremity angiogram Left brachial artery and forearm vessel embolectomy Discharging clinician: Bolivar Jackson Anticipated date of discharge: 05/12/17 - Patient Status Disposition: Home, Self-Care Condition: Good Functional capacity at discharge: independent ambulation Overall status at discharge: patient is progressing back to baseline - Discharge Instructions Follow Up With: Nii Scott DO [Primary Care Provider] - 05/18/17 2:00 pm Bolivar Jackson MD [Partnered Physician] - 06/02/17 11:45 am Additional Instructions: No lifting greater than 10 pounds with left upper extremity. Keep surgical incision dry for total 5 days following surgery. Mireles redress left forearm incision as tolerated. - Diet and Activity Activity: increase activity as tolerated Diet: advance to your usual diet - Hospital Course Hospital course: Ms. Schroeder is a 67 year old female With chronic stage IV chronic kidney disease. The patient had an intervention of the cephalic vein of left antecubital AV fistula. She developed a brachial artery embolus. She eventually made her way to the vascular surgery clinic. She had an angiogram performed on Wednesday and surgery yesterday for brachial artery embolus. She had sabianism of Doppler signals and warm pink left hand and finger. She had increased muscle strength and elimination of her ischemic rest pain. Postprocedure BUN/creatinine reveal no change in her stage IV kidney disease. - Time Spent with Patient Total time spent providing and/or coordinating discharge services: Exam Vital Signs, Last 4 Hours Temp Pulse Resp BP Pulse Ox 05/12/17 07:45 98.0 F 69 18 143/64 95 General: Present: Conversant, No Apparent Distress Vascular: Present: Color/Temperature (Left hand and fingers warm and pink with less than 2 second capillary refill), Surgical incisions (Clean and dry), Other (Multiphasic Doppler signals at the ulnar and radial artery as well as in the distal palmar arch.) - VTE Documentation of Mechanical Device: Intermittent pneumatic compression device
[2017-05-12] MEDS ORDERED: Isosorbide MONOnitrate (24 HR) 60 MG TAB.ER.24H PO SCH (09:00)
[2017-05-12] MEDS ORDERED: Aspirin 81 MG TAB.CHEW PO SCH (09:00)
[2017-05-12] MEDS ORDERED: Nitroglycerin 0.4 MG TAB.SUBL SL SCH (09:00)
[2017-05-12] MEDS ORDERED: NIFEdipine XL (24 HR) 60 MG TAB.ER.24 PO SCH (09:00)
[2017-05-12] MEDS ORDERED: Cholecalciferol (D-3) 1,000 UNIT TABLET PO SCH (09:00)
[2017-05-12] MEDS ORDERED: Magnesium Oxide 400 MG TABLET PO SCH (09:00)
[2017-05-12] MEDS ORDERED: Furosemide 20 MG TABLET PO SCH (09:00)
== END 2017-05-12 13:59 | disposition home or self-care (01) | DRG 253 ==
LOC: INVDIALAB 09:08 → 2NENU 13:55
PROVIDERS: ADMIT Surgery Vascular Surgery; ATTEND Surgery Vascular Surgery
PROC: VASEMBO (2017-05-11 17:30)

== ENCOUNTER 2018-05-17 00:43 | Inpatient (IN) ==
--- NOTE | 2018-05-17 04:37 | Internal Med History&Physical ---
Addendum entered and electronically signed by Ok Mcmahon MD 05/17/18 07:18: I saw and evaluated the patient. I reviewed the residents note, performed my own physical examination and agree with findings and plan as documented in the residents note. Patient seen and examined on 05/17/18. Patient presents with acute hypoxic respiratory failure, possibly related to CHF exacerbation. Patient also has slight bump in her creatinine from her baseline, as well as a bump in troponin to 0.12. Will continue to trend troponins, could be due to demand ischemia. Echocardiogram in the morning as well. Original Note: Date of Encounter: 05/17/18 Time of Encounter: 04:34 Internal Medicine - H&P: HPI Chief complaint: Shortness of breath Admitted From: Home History of present illness: Ms. Schroeder is a 68-year-old female with a PMH of CHF, hypertension, renal disease who presented to [facility] on 05/17/18 with a chief complaint of difficulty breathing. Patient reported having been short of breath for 3-1/2 hours. Told EMS that she had a slight cough with white sputum production. Patient was satting at a 78% on room air. She was given a nebulizer treatment, placed on O2 mask. O2 sat subsequently improved to 89-90%. Patient had swelling of her eyes and face that developed during transport. Patient became more dyspneic and anxious. Patient was treated with Solu-Medrol, Benadryl, Pepcid, and IM epinephrine. Patients initial vital signs were as follows: Temperature 96.5, Pulse 80, Respiratory Rate 24, Blood Pressure 167/92 O2 Sat by Pulse Oximetry 99. EKG demonstrated sinus tachycardia. CXR demonstrated bilateral pulmonary edema. Was given a one-time dose of IV Lasix. She was started on BiPAP. Laboratory analysis demonstrated leukocytosis at 16.6 with left shift. BNP was elevated at 2269, creatinine 2.24. Patient was transferred to [facility] ICU. She was seen and examined at bedside; currently on BiPAP. Past Med Surg Social Fam HX - Past Medical History Medical history: CHF, hypertension, renal disease Psychiatric history: anxiety - Past Surgical History Additional surgical history: left upper extremity AV fistula - Social History Smoking Status: Current every day smoker Packs per day: 0.5 Smokeless Tobacco Status: No Alcohol use: none Drug use: none Internal Medicine - H&P: Meds Aspirin 81 mg PO DAILY 05/10/17 [History] Carvedilol [Coreg] 25 mg PO BID 05/10/17 [History] Furosemide [Lasix] 20 mg PO DAILY 05/10/17 [History] Isosorbide MONOnitrate (24 HR) [Imdur] 60 mg PO DAILY 05/10/17 [History] LORazepam [Ativan] 1 mg PO BID 05/10/17 [History] NIFEdipine [Adalat cc] 30 mg PO QPM 05/10/17 [History] NIFEdipine [Adalat cc] 60 mg PO DAILY 05/10/17 [History] Nitroglycerin [Nitrostat] 0.4 mg SL DAILY 05/10/17 [History] Allergy/AdvReac Type Severity Reaction Status Date / Time Amoxicillin Allergy Difficulty Verified 05/09/18 11:59 Swallowing Sulfa (Sulfonamide Allergy Difficulty Verified 05/09/18 11:59 Antibiotics) Swallowing All Systems PM: A 10-system review of systems was performed and is negative for pertinent findings except as documented above in the HPI. - Constitutional Constitutional: as per HPI, no chills, no fatigue - EENT Eyes: as per HPI, no change in vision Ears: as per HPI Nose, mouth and throat: as per HPI, no throat swelling - Breasts Breasts: as per HPI - Cardiovascular Cardiovascular ROS IM: as per HPI, no chest pain, no claudication, no dyspnea, no irregular heart rhythm - Respiratory Respiratory: as per HPI, no cough, no dyspnea - Gastrointestinal Gastrointestinal: as per HPI, no abdominal pain - Constitutional Vitals: Pulse Resp BP Pulse Ox 59 22 147/71 97 05/17/18 04:00 05/17/18 04:00 05/17/18 04:00 05/17/18 04:00 General appearance: Present: A&O X 3 Exam: see above - Head Head exam: Present: atraumatic, normocephalic - Eye Eye exam: Present: PERRL, conjuntiva pink, sclera anicteric Pupils: Present: PERRL - Neck Neck exam general surgery: Present: supple, trachea midline. Absent: l ymphadenopathy - Respiratory Respiratory exam: Present: decreased breath sounds, prolonged expiratory phase, wheezes. Absent: accessory muscle use, rales, rhonchi - Cardiovascular Cardiovascular exam: Present: RRR, +S1, +S2. Absent: diastolic murmur, gallop, rubs, systolic murmur - GI/Abdominal GI/Abdominal exam: Present: normal bowel sounds, soft, no peritoneal signs. Absent: distended, tenderness - Extremities Exam Extremities exam: Present: warm, radial pulses palpable and symmetrical. Absent: calf tenderness, cyanotic, pedal edema - Neurological Exam Neurological exam: Present: CN II-XII intact, oriented X3, no focal deficits. Absent: pronater drift, facial droop, speech deficit - Skin Skin exam: Present: dry, intact Internal Med - H&P Results - Labs CBC & Chem 7: 05/17/18 05:10 05/17/18 05:10 - Assessment and plan (1) Acute respiratory failure with hypoxia Current Visit: Yes Status: Acute Assessment and plan: Unknown etiology at this time; possibly due to CHF exacerbation - ABG was performed; 7/// - Patient was placed on BiPAP and was given IV Lasix - CXR demonstrated pulmonary edema Plan: - Continuous pulse ox and telemetry - Continue BiPAP - Lasix 40mg IV BID (2) Congestive heart failure Current Visit: No Status: Acute Assessment and plan: Patient has a known history of congestive heart failure - BNP was elevated at 2269 - CXR demonstrated pulmonary edema - Continue BiPAP and lasix as above Qualifiers: Qualified Code(s): I50.9 - Heart failure, unspecified (3) Angioedema Current Visit: No Status: Acute Assessment and plan: Initially presented with swelling in the mouth - Was treated with Benadryl, IV Solu-Medrol, and epinephrine - Unknown etiology at this time - We will continue to monitor patient's clinical status Qualifiers: Qualified Code(s): T78.3XXA - Angioneurotic edema, initial encounter (4) Chronic kidney disease, stage IV (severe) Current Visit: No Status: Chronic Assessment and plan: Patient has a known history of chronic kidney disease - Creatinine is elevated at 2.24, slightly elevated from baseline - Will hold off on IVF at this time due to CHF (5) Hypertension Current Visit: Yes Status: Acute Assessment and plan: Hydralazine Q6 - Continue home meds Qualifiers: Qualified Code(s): I10 - Essential (primary) hypertension - Time Spent With Patient Total time spent is greater than 50% in coordination of care (as documented) at patient's floor/unit and/or counseling patient: less than 15 minutes
[2018-05-17] MEDS ORDERED: Naloxone 0.4 MG/ML INJ IVP PRN ×2 (04:39→12:27)
[2018-05-17 05:21] LABS: Basophils % 0.3 %; Hematocrit 37.5 % (35.3-44.9); Immature Granulocytes % 0.3 % (0-4); Lymphocytes # 0.9 K/mcL (0.6-4.6); Lymphocytes % 7.2 %; Mean Corpuscular Hemoglobin 30.4 pg (28.0-33.3); Mean Corpuscular Volume 94.9 fL (83.0-100.0); Mean Platelet Volume 10.7 fL (9.4-12.4); Monocytes # 0.4 K/mcL (0.0-1.3); Monocytes % 2.9 %; Neutrophils # 10.9 K/mcL (1.6-8.9); Platelet Count 212 K/mcL (140-400); Red Blood Count 3.95 M/mcL (3.82-4.97); Red Cell Distribution Width 15.1 % (11.5-14.5); Segmented Neutrophils % 89.3 %
[2018-05-17 05:41] LABS: Calcium 9.3 mg/dL (8.6-10.3)
[2018-05-17] MEDS ORDERED: *HR* Labetalol 20 MG/4 ML SYRINGE IVP ONE ×2 (07:06→07:08)
[2018-05-17] MEDS ORDERED: Furosemide 40 MG/4 ML VIAL IVP SCH (08:00)
--- NOTE | 2018-05-17 08:22 | Pulmonology Consult Note ---
<Louisa Guaman S - Last Filed: 05/17/18 11:55> Medications and Allergies Aspirin 81 mg PO DAILY 05/10/17 [History] Furosemide [Lasix] 20 mg PO DAILY 05/10/17 [History] Isosorbide MONOnitrate (24 HR) [Imdur] 60 mg PO DAILY 05/10/17 [History] LORazepam [Ativan] 1 mg PO BID 05/10/17 [History] NIFEdipine [Adalat cc] 30 mg PO QPM 05/10/17 [History] NIFEdipine [Adalat cc] 60 mg PO QAM 05/10/17 [History] Carvedilol 6.25 mg PO BID 05/17/18 [History] Allergy/AdvReac Type Severity Reaction Status Date / Time Amoxicillin Allergy Difficulty Verified 05/09/18 11:59 Swallowing Sulfa (Sulfonamide Allergy Difficulty Verified 05/17/18 15:35 Antibiotics) Swallowing All Systems: The remainder of the systems were reviewed and are negative Physical Examination Vital Signs: Vital Signs, Last 4 Hours Temp Pulse Resp BP Pulse Ox 05/17/18 11:00 97.7 F 05/17/18 10:00 84 22 193/84 99 05/17/18 09:00 86 20 194/85 98 05/17/18 08:00 97.9 F 82 20 187/81 100 Results - Laboratory Findings CBC and BMP: 05/17/18 05:10 05/17/18 05:10 Abnormal lab findings: Abnormal lab results WBC 12.2 K/mcL (4.3-11.1) H 05/17/18 05:10 RDW 15.1 % (11.5-14.5) H 05/17/18 05:10 Neutrophils # 10.9 K/mcL (1.6-8.9) H 05/17/18 05:10 Carbon Dioxide 22 mEq/L (23-29) L 05/17/18 05:10 BUN 47 mg/dL (8-23) H 05/17/18 05:10 Creatinine 2.07 mg/dL (0.60-1.20) H 05/17/18 05:10 Est GFR ( Amer) 29 (> 60) L 05/17/18 05:10 Est GFR (Non-Af Amer) 24 (> 60) L 05/17/18 05:10 Glucose 137 mg/dL (70-105) H 05/17/18 05:10 Troponin I 0.12 ng/mL (< 0.04) H* 05/17/18 05:10 B-Natriuretic Peptide 3175 pg/mL (Less than 100) H 05/17/18 05:10 - Clinical Findings Intake & Output: Intake & Output 05/16/18 05/17/18 05/17/18 23:59 07:59 15:59 Output Total 450 / 450 400 / 400 Balance -450 / -450 -400 / -400 Weight 50.4 kg Consult Discharge Plan - Plan Referrals: NONE,PCP [Primary Care Provider] - - Attending Attestation I saw and evaluated this patient and my medical decision-making was reviewed with the Resident Physician. I agree with the documented findings, disposition and treatment plan as described except to the extent set forth below. We independently had momv-lt-size contact with the patient Patient seen and examined at bedside Labs, radiology, chart personally reviewed. Management was reviewed during multidisciplinary critical care rounds. REVENUE COLLECTOR: Patient is conscious oriented 3 no evidence of encephalopathy no focal neurological deficit concerning for any CVAs. Pulm: Patient has acceptable oxygenation and ventilation V/Q mismatch led to hypoxic respiratory failure and high BNP and compromised kidney function most likely due to cardiorenal syndrome to continue diuresis. Cards: Patient has elevated blood pressure need to reduce her afterload started her home regimen we need to add some more afterload reducers and the blood pressure does not come with home regimen. FEN-GI: Advance diet as tolerated Renal: Most likely due to cardiorenal syndrome patient has chronic kidney injury we will monitor her urine output and serum creatinine as we are diuresing her to follow electrolytes. ID: Low suspicion of active infectious issues to de-escalate antibiotics based on clinical picture Heme/Onc: Thromboprophylaxis. Endo: Glucose Monitored Integ/MSK: Skin Care per routine ICU Nursing Protocol prevent ulcers. Lines: All lines examined without evidence of infection : Dispo: Transfer to Medical Telemetry CODE: Full Code <Roland Munson - Last Filed: 05/17/18 16:25> Date of Encounter: 05/17/18 Time of Encounter: 08:22 Assessment and Plan (1) Acute respiratory failure with hypoxia Current Visit: Yes Status: Acute Unknown etiology at this time; possibly due to CHF exacerbation - Patient was placed on BiPAP and was given IV Lasix - CXR demonstrated pulmonary edema repeat CXR showed improvement Plan: - Continuous pulse ox and telemetry - Patient stable on O2 sat 94% on room air - Lasix 40mg IV BID (2) Hypertension Current Visit: Yes Status: Acute Known history of HTN Patient was given hydralazine and labetolol in the AM Restarted home medications of coreg, and procardia continue to monitor Qualifiers: Qualified Code(s): I10 - Essential (primary) hypertension (3) Angioedema Current Visit: No Status: Acute Initially presented with swelling in the mouth and eyes - Was treated with Benadryl, IV Solu-Medrol, and epinephrine - Possibly from doxycycline per patient report although patient is a poor historian - We will continue to monitor patient's clinical status Qualifiers: Qualified Code(s): T78.3XXA - Angioneurotic edema, initial encounter (4) Congestive heart failure Current Visit: No Status: Acute Patient has a known history of congestive heart failure - BNP was elevated at 3175 - CXR demonstrated pulmonary edema repeat CXR showed improvement - Continue lasix as above Qualifiers: Qualified Code(s): I50.9 - Heart failure, unspecified (5) Pulmonary edema Current Visit: No Status: Acute Pulmonary edema found on CXR however, repeat CXR was showing improvement Qualifiers: Chronicity: acute Qualified Code(s): J81.0 - Acute pulmonary edema (6) Chronic kidney disease, stage IV (severe) Current Visit: No Status: Chronic Patient has a known history of chronic kidney disease - Creatinine is elevated at 2.24, slightly elevated from baseline - Will hold off on IVF at this time due to CHF History of Present Illness Consult date: 05/17/18 Requesting physician: Leighton Lee Chief complaint: respiratory distress History of present illness: Patient presents from [place] ED. Patient was at home laying down watching TV when she was having shortness of breath. Patient appeared to have developed angioedema and was given IM epi, steroids, Benadryl, and nebulizer treatment in the ED then transferred to ICU. Likely source was doxycycline as she was on it for a sinus infection. However, juan is not the best historian. Patient curre ntly stable on room air. Transfer to hospitalist service in progress Past Med Surg Social Fam HX - Past Medical History Medical history: CHF, hypertension, renal disease Psychiatric history: anxiety - Past Surgical History Additional surgical history: left upper extremity AV fistula - Social History Smoking Status: Current every day smoker Packs per day: 0.5 Smokeless Tobacco Status: No Alcohol use: none Drug use: none All Systems: The remainder of the systems were reviewed and are negative Physical Examination Vital Signs: Vital Signs, Last 4 Hours Temp Pulse Resp BP Pulse Ox 05/17/18 08:00 97.9 F 82 20 187/81 100 05/17/18 07:50 86 05/17/18 07:00 86 18 200/93 100 05/17/18 06:00 90 26 197/94 100 05/17/18 05:32 22 190/89 100 05/17/18 05:00 74 23 197/98 99 Results - Laboratory Findings CBC and BMP: 05/17/18 05:10 05/17/18 05:10 Abnormal lab findings: Abnormal lab results WBC 12.2 K/mcL (4.3-11.1) H 05/17/18 05:10 RDW 15.1 % (11.5-14.5) H 05/17/18 05:10 Neutrophils # 10.9 K/mcL (1.6-8.9) H 05/17/18 05:10 Carbon Dioxide 22 mEq/L (23-29) L 05/17/18 05:10 BUN 47 mg/dL (8-23) H 05/17/18 05:10 Creatinine 2.07 mg/dL (0.60-1.20) H 05/17/18 05:10 Est GFR ( Amer) 29 (> 60) L 05/17/18 05:10 Est GFR (Non-Af Amer) 24 (> 60) L 05/17/18 05:10 Glucose 137 mg/dL (70-105) H 05/17/18 05:10 Troponin I 0.12 ng/mL (< 0.04) H* 05/17/18 05:10 B-Natriuretic Peptide 3175 pg/mL (Less than 100) H 05/17/18 05:10 - Clinical Findings Intake & Output: Intake & Output 05/16/18 05/17/18 05/17/18 23:59 07:59 15:59 Output Total 450 / 450 400 / 400 Balance -450 / -450 -400 / -400 Weight 50.4 kg
[2018-05-17] MEDS ORDERED: *HR* Heparin 5,000 UNIT/ML VIAL SQ SCH (09:00)
[2018-05-17] MEDS ORDERED: Nitroglycerin 0.4 MG TAB.SUBL SL SCH (09:00)
[2018-05-17] MEDS ORDERED: *HR* LORazepam 1 MG TABLET PO SCH (09:00)
[2018-05-17] MEDS ORDERED: Aspirin 81 MG TAB.CHEW PO SCH (09:00)
[2018-05-17] MEDS ORDERED: NIFEdipine XL (24 HR) 60 MG TAB.ER.24 PO SCH (09:00)
[2018-05-17] MEDS ORDERED: Isosorbide MONOnitrate (24 HR) 60 MG TAB.ER.24H PO SCH (09:00)
[2018-05-17] MEDS ORDERED: Nicotine 21 MG PATCH.TD24 TD SCH (10:00)
[2018-05-17] MEDS ORDERED: NIFEdipine XL (24 HR) 30 MG TAB.ER.24 PO SCH ×2 (18:00)
[2018-05-17] MEDS: Furosemide 40 MG/4 ML VIAL IVP SCH (18:02)
[2018-05-17] MEDS: *HR* Heparin 5,000 UNIT/ML VIAL SQ SCH (18:05)
[2018-05-17] MEDS: *HR* LORazepam 1 MG TABLET PO SCH (21:03)
[2018-05-18 05:58] LABS: Basophils % 0.1 %; Hematocrit 35.7 % (35.3-44.9); Hemoglobin 11.8 g/dL (11.5-15.4); Immature Granulocytes % 0.3 % (0-4); Lymphocytes # 2.3 K/mcL (0.6-4.6); Mean Corpuscular HGB Conc 33.1 g/dL (31.6-35.5); Mean Corpuscular Hemoglobin 30.6 pg (28.0-33.3); Mean Corpuscular Volume 92.7 fL (83.0-100.0); Mean Platelet Volume 11.3 fL (9.4-12.4); Monocytes # 0.7 K/mcL (0.0-1.3); Monocytes % 7.1 %; Neutrophils # 6.7 K/mcL (1.6-8.9); Platelet Count 218 K/mcL (140-400); Red Blood Count 3.85 M/mcL (3.82-4.97); Red Cell Distribution Width 15.3 % (11.5-14.5); Segmented Neutrophils % 68.5 %
[2018-05-18] MEDS: *HR* Heparin 5,000 UNIT/ML VIAL SQ SCH (06:07)
[2018-05-18 06:29] LABS: Albumin 4.3 g/dL (3.5-5.7); Albumin/Globulin Ratio 1.5 (1.1-2.2); Bilirubin,Total 0.7 mg/dL (0.3-1.0); Calcium 9.4 mg/dL (8.6-10.3); Globulin 2.8 g/dL (2.4-3.5); Magnesium 2.5 mg/dL (1.6-2.6); Phosphorous 4.5 mg/dL (2.7-4.5); Potassium 3.5 mEq/L (3.5-5.1); Total Protein 7.1 g/dL (6.4-8.9)
[2018-05-18] MEDS: *HR* LORazepam 1 MG TABLET PO SCH (08:45)
[2018-05-18] MEDS: Furosemide 40 MG/4 ML VIAL IVP SCH (08:46)
[2018-05-18] MEDS ORDERED: Aspirin 81 MG TAB.CHEW PO SCH (09:00)
[2018-05-18] MEDS ORDERED: NIFEdipine XL (24 HR) 60 MG TAB.ER.24 PO SCH (09:00)
[2018-05-18] MEDS ORDERED: Isosorbide MONOnitrate (24 HR) 60 MG TAB.ER.24H PO SCH (09:00)
[2018-05-18] MEDS ORDERED: Nicotine 21 MG PATCH.TD24 TD SCH (09:00)
[2018-05-18 12:41] VITALS: BP 160/70
--- NOTE | 2018-05-18 14:20 | Discharge Summary ---
- NOTES TO OUTPATIENT PROVIDER Notes to Outpatient Provider: Follow-up with Primary care provider Date of Encounter: 05/18/18 Time of Encounter: 11:00 Hospital course: Patient is a 68-year-old female with past medical history significant for CHF, hypertension, renal disease who presented to [facility] on 05/17/18 with a chief complaint of difficulty breathing. Patient reported having been short of breath for 3-1/2 hours prior to admission after taking prednisone. In the ER, patient was treated with Solu-Medrol, Benadryl, Pepcid, and IM epinephrine and her symptoms improved. Patients BNP was elevated at 2269. During patients hospital stay, her symptoms resolved and she was weaned off supplemental oxygenation. She had no signs of volume overload and lungs are clear to auscultation bilaterally. She was able to tolerate by mouth without any difficulty swallowing. Patient will be discharged to follow-up with primary care provider. - Time Spent with Patient Total time spent providing and/or coordinating discharge services: Less than 30 minutes - Discharge Medications Home Medications: Aspirin 81 mg PO DAILY 05/10/17 [History] Furosemide [Lasix] 20 mg PO DAILY 05/10/17 [History] Isosorbide MONOnitrate (24 HR) [Imdur] 60 mg PO DAILY 05/10/17 [History] LORazepam [Ativan] 1 mg PO BID 05/10/17 [History] NIFEdipine [Adalat cc] 30 mg PO QPM 05/10/17 [History] NIFEdipine [Adalat cc] 60 mg PO QAM 05/10/17 [History] Carvedilol 6.25 mg PO BID 05/17/18 [History] Allergies/Adverse Reactions: Allergy/AdvReac Type Severity Reaction Status Date / Time Amoxicillin Allergy Difficulty Verified 05/09/18 11:59 Swallowing doxycycline Allergy Anaphylaxis Verified 05/18/18 12:38 prednisone Allergy Anaphylaxis Verified 05/18/18 15:33 Sulfa (Sulfonamide Allergy Difficulty Verified 05/17/18 15:35 Antibiotics) Swallowing Date of admission: 05/17/18 10:11 Primary care physician: PCP NONE - Constitutional Vitals: Temp Pulse Resp BP Pulse Ox 98.0 F 72 18 160/70 97 05/18/18 11:03 05/18/18 11:03 05/18/18 11:03 05/18/18 12:40 05/18/18 11:03 General appearance: Present: A&O X 3 Exam: Gen.: Nonacute distress, alert and oriented 3 ENT: Mucosal membranes moist Respiratory: Lungs are clear to auscultation bilaterally without any wheezing rhonchi or rales Cardiovascular: Normal S1 and S2 regular rate rhythm no murmurs rubs or gallops Abdomen: Soft, nontender and nondistended with positive bowel sounds Extremities: No lower extremity edema Skin: Normal color - Patient Status Disposition: Home, Self-Care - Discharge Instructions Instructions: Acute Respiratory Distress Syndrome (GEN), Anaphylaxis (GEN) Follow Up With: Merissa Barroso CNP [Advanced Practice Nurse] - 05/24/18 11:00 am
== END 2018-05-18 15:13 | disposition home or self-care (01) | DRG 291 ==
LOC: ICNU → SUATTDRO 10:11 → 2ANU 19:31
PROVIDERS: ADMIT Pediatrics; ATTEND Hospitalist

== ENCOUNTER 2018-05-29 04:28 | Inpatient (IN) ==
[2018-05-29] MEDS ORDERED: *HR* Labetalol 20 MG/4 ML SYRINGE IVP ONE ×2 (07:31→07:45)
[2018-05-29] MEDS ORDERED: Naloxone 0.4 MG/ML INJ IVP PRN (07:34)
[2018-05-29] MEDS ORDERED: Ipratropium 1 PUFF INHALER IH SCH (08:00)
[2018-05-29 08:07] LABS: Basophils % 0.3 %; Hematocrit 37.2 % (35.3-44.9); Hemoglobin 12.3 g/dL (11.5-15.4); Immature Granulocytes % 0.4 % (0-4); Lymphocytes # 0.5 K/mcL (0.6-4.6); Lymphocytes % 3.6 %; Mean Corpuscular HGB Conc 33.1 g/dL (31.6-35.5); Mean Corpuscular Volume 93.7 fL (83.0-100.0); Mean Platelet Volume 10.5 fL (9.4-12.4); Monocytes # 0.1 K/mcL (0.0-1.3); Monocytes % 1.1 %; Neutrophils # 11.9 K/mcL (1.6-8.9); Platelet Count 312 K/mcL (140-400); Red Blood Count 3.97 M/mcL (3.82-4.97); Segmented Neutrophils % 94.6 %
[2018-05-29 08:11] LABS: VBG HCO3 23 mEq/L (21-27); VBG PCO2 32 mmHg (41-51); VBG PH 7.47 pH Units (7.32-7.42); VBG PO2 176 mmHg (25-50)
[2018-05-29 08:18] LABS: INR 1.2; Prothrombin Time 13.6 Seconds (9.4-12.1)
[2018-05-29 08:21] LABS: Activated Partial Thrombo Time 56.4 Seconds (26.0-36.0)
--- NOTE | 2018-05-29 08:22 | Internal Med History&Physical ---
Date of Encounter: 05/29/18 Time of Encounter: 08:00 Internal Medicine - H&P: HPI Chief complaint: shortness and breath Admitted From: Home Plans for Post Hospital Care: Home History of present illness: Ms. Schroeder is a 68 year old female HFPEF, anxiety and HTN presented to the [facility] with complaint of SOB. As per patient her shortness of breath started suddenly on the day before admission which she visited an urgent care and was given azithromycin for bronchitis. Around 7 PM her symptoms worsen to the point that she could not catch her breath that she decided to go to the [facility] emergency department. In addition to shortness of breath she also complains of cough with thick phlegm that is hard for her to bring up. Her phlegm is white in color she denies blood. She did receive her pneumonia vaccination within the past 5 years however she has not had the chance to get her flu vaccination. In addition to shortness of breath cough and phlegm production she also complains of diffuse wheezing associated with her shortness of breath. Oxygen alleviates her symptoms however her symptoms are aggravated by ambulation. She denies fever, chills, calf tenderness, or leg swelling, PND or orthopnea. She is compliant with her medications, was never diagnosed with COPD and currently is not on any home oxygen nor does she have any inhalers. As per [facility] documentation EMS was called to her house prior to transport to [facility] emergency department found her saturating in the 70s which improved by oxygen. In addition her blood pressure was found to be 217/100 with heart rate of 100. At [facility] chest x-ray showed Interval worsening of diffuse interstitial opacities compatible with worsening pulmonary edema or multifocal atypical infection. She was transferred to [facility] for further management of above symptoms. Past Med Surg Social Fam HX - Past Medical History Medical history: CHF, hypertension, renal disease Psychiatric history: anxiety - Past Surgical History Surgical History: other (Left arm AV shunt) Additional surgical history: left upper extremity AV fistula - Social History Smoking Status: Current every day smoker Smokeless Tobacco Status: No Alcohol use: none Drug use: none Internal Medicine - H&P: Meds Aspirin 81 mg PO DAILY 05/10/17 [History] Furosemide [Lasix] 20 mg PO DAILY 05/10/17 [History] Isosorbide MONOnitrate (24 HR) [Imdur] 60 mg PO DAILY 05/10/17 [History] LORazepam [Ativan] 1 mg PO BID 05/10/17 [History] NIFEdipine [Adalat cc] 30 mg PO QPM 05/10/17 [History] NIFEdipine [Adalat cc] 60 mg PO QAM 05/10/17 [History] Carvedilol 6.25 mg PO BID 05/17/18 [History] Azithromycin [Zithromax] 250 - 500 mg PO DAILY #6 tablet 05/28/18 [Rx] Allergy/AdvReac Type Severity Reaction Status Date / Time Amoxicillin Allergy Difficulty Verified 05/29/18 02:22 Swallowing doxycycline Allergy Anaphylaxis Verified 05/29/18 02:22 prednisone Allergy Anaphylaxis Verified 05/29/18 02:22 Sulfa (Sulfonamide Allergy Difficulty Verified 05/29/18 02:22 Antibiotics) Swallowing All Systems PM: review of systems was performed and is negative for pertinent findings except as documented above in the HPI. - Constitutional Vitals: Temp Pulse Resp BP Pulse Ox 98.2 F 111 22 200/83 88 05/29/18 07:41 05/29/18 07:41 05/29/18 07:41 05/29/18 07:41 05/29/18 07:51 Exam: General: Patient is alert, oriented, in moderate distress, speaks in 5 board sentences Head: atraumatic, normocephalic, Eye: normal appearance, PERRL, no scleral icterus, no conjunctival injection ENT: mucous membranes moist, normal external ear exam Neck: normal inspection, trachea midline, full ROM, positive for JVD Chest: normal inspection, symmetric chest rise Respiratory: Tachypneic, diffuse wheezing in the anterior chest, bilateral rales, not using accessory muscles Cardiovascular: Tachycardic, S1 and S2, no murmurs or thrills appreciated Abdomen: Bowel sounds present normoactive x-4 quadrants. Abdomen is soft, nondistended. no Epigastric tenderness. No guarding or rebound. No organomegaly noted, musculoskeletal: Spontaneously moving all extremities. no edema, no calf tenderness Skin: warm, dry, intact. Has AV fistula the left upper extremity with palpable thrill and audible bruit Neuro: Alert and oriented x4. Sensation light touch intact. Cranial nerves 2- 12 is intact. Not aphasic, no focal deficit Psych: Patient's affect is normal Internal Med - H&P Results - Labs CBC & Chem 7: 05/29/18 07:53 05/29/18 07:53 - Assessment and plan (1) Acute pulmonary edema Current Visit: Yes Status: Acute Assessment and plan: Sudden onset of shortness of breath, uncontrolled blood pressure 200/100 started her on Lasix 40 mg IV twice a day nicardipine drip for BP control Chest x-ray in a.m. Strict intake and output Strict BP control Fluid restriction Cardiology consulted will follow recommendations ABG stat troponin, BNP STAT 05/28 CXR Interval worsening of diffuse interstitial opacities compatible with worsening pulmonary edema or multifocal atypical infection. Asymmetric opacity at the right lung base may represent asymmetric edema, atelectasis or pneumonia in the correct clinical setting. 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 Mild global LV systolic dysfunction. Mild concentric left ventricular hypertrophy. Moderate left ventricular diastolic dysfunction. LV chamber size upper limits of normal. Normal right ventricular structure and function. Mild-moderate mitral regurgitation. No pulmonary hypertension. There is a trivial pericardial effusion present. (5) Acute bronchitis Current Visit: Yes Status: Acute Assessment and plan: Diffuse wheezing in the anterior chest, cough Respiratory viral panel Urine antigens Sputum culture Solu-Medrol 40 mg every 8 hours Levaquin IV- watch QT DUO-nebs Q4H BiPAP when necessary for respiratory distress Oxygen via nasal cannula to keep saturations above 92% Will need influenza vaccination upon discharge Continuous pulse ox procalcitonin if no improvement in respiratory status consider CT chest CXR Interval worsening of diffuse interstitial opacities compatible with worsening pulmonary edema or multifocal atypical infection. Asymmetric opacity at the right lung base may represent asymmetric edema, atelectasis or pneumonia in the correct clinical setting. Qualifiers: Bronchitis organism: unspecified organism Qualified Code(s): J20.9 - Acute bronchitis, unspecified (6) Chronic kidney disease, stage IV (severe) Current Visit: No Status: Chronic Assessment and plan: Status post fistula placement Not on dialysis currently Baseline creatinine anywhere from 1.7-2.14 currently 1.98 We will continue to monitor renal functions consider nephrology consult (7) Anxiety Current Visit: Yes Status: Acute Assessment and plan: Continue home dose lorazepam (8) DVT prophylaxis Current Visit: Yes Status: Acute Assessment and plan: Heparin subcutaneous - Time Spent With Patient Total time spent is greater than 50% in coordination of care (as documented) at patient's floor/unit and/or counseling patient:
[2018-05-29 08:40] LABS: Albumin 4.4 g/dL (3.5-5.7); Albumin/Globulin Ratio 1.4 (1.1-2.2); Bilirubin,Total 0.5 mg/dL (0.3-1.0); Calcium 9.2 mg/dL (8.6-10.3); Chol/HDL Ratio 4.4 (0-4.9); Globulin 3.1 g/dL (2.4-3.5); Magnesium 2.2 mg/dL (1.6-2.6); Phosphorous 4.2 mg/dL (2.7-4.5); Potassium 3.5 mEq/L (3.5-5.1); Total Protein 7.5 g/dL (6.4-8.9)
[2018-05-29] MEDS ORDERED: Dextrose Gel 15 GM/37.5 ML TUBE PO PRN ×2 (08:43)
[2018-05-29] MEDS ORDERED: *HR* Dextrose 50 % in Water (Syg) 50 ML SYRINGE IVP PRN (08:43)
[2018-05-29] MEDS ORDERED: D5% in Water 1,000 ML IVC PRN (08:43)
[2018-05-29 08:53] LABS: Troponin I 0.07 ng/mL (< 0.04)
[2018-05-29] MEDS: niCARdipine 40 MG/200 ML MLS IVC SCH ×2 (08:58→18:53)
[2018-05-29] MEDS ORDERED: Levofloxacin 750 MG/150 ML 750 MG/150 ML BAG IVPB SCH (09:00)
[2018-05-29] MEDS ORDERED: Isosorbide MONOnitrate (24 HR) 60 MG TAB.ER.24H PO SCH (09:00)
[2018-05-29] MEDS: Furosemide 40 MG/4 ML VIAL IVP SCH ×2 (09:04→16:20)
[2018-05-29] MEDS: Aspirin 81 MG TAB.CHEW PO SCH (09:05)
[2018-05-29] MEDS: *HR* LORazepam 1 MG TABLET PO SCH ×2 (09:05→21:01)
[2018-05-29] MEDS: MethylPREDNISolone 40 MG/ML VIAL IVP SCH ×3 (09:06→23:54)
[2018-05-29] MEDS ORDERED: 0.9 % Sodium Chloride 250 ML ONE (10:30)
--- NOTE | 2018-05-29 10:34 | Electrocardiograph Report ---
Test Date: 2018-05-29 Pat Name: Gurjit Schroeder Department: 110 Room: 2N02 Gender: F Life Skills Consultant: MAGALI : 1950 Requested By: Guerline Ruvalcaba Order Number: [id number] Reading MD: Johnathon Gomez Measurements Intervals [place] Rate: 84 P: 48 DE: 179 QRS: -9 QRSD: 115 T: 113 QT: 395 QTc: 436 Interpretive Statements SINUS RHYTHM POSSIBLE LEFT ATRIAL ENLARGEMENT LEFT VENTRICULAR HYPERTROPHY AND ST-T CHANGE INFERIOR MYOCARDIAL INFARCTION, PROBABLY OLD Electronically Signed On 05-29-2018 10:33:19 EST by Johnathon Gomez
[2018-05-29] MEDS: Nicotine 14 MG PATCH.TD24 TD SCH (11:45)
[2018-05-29] MEDS: Ipratropium/Albuterol Neb 3 ML IH SCH ×3 (11:49→20:47)
[2018-05-29] MEDS: Insulin LISPRO 300 UNITS/3 ML VIAL SQ SCH ×3 (11:51→23:54)
[2018-05-29 12:06] LABS: ABG Base Excess 3 mEq/L (-2 to 3); ABG HCO3 26 mEq/L (21-27); ABG Oxygen Saturation 98 % (95-98); ABG PCO2 34 mmHg (35-45); ABG PO2 97 mmHg (85-104); ABG TCO2 27 mEq/L (20-26)
--- NOTE | 2018-05-29 13:02 | Cardiology Consult Note ---
Date of Encounter: 05/29/18 Time of Encounter: 10:00 Assessment and Plan (1) (HFpEF) heart failure with preserved ejection fraction Current Visit: Yes Status: Acute Patient with features consistent with acute CHF exacerbation, likely secondary to inadequate diuretic dose from her last hospitalization, likely triggered by acute bronchitis. Continue Lasix 40 mg daily. Strict inputs and outputs charting. Fluid restricted low-salt diet. Monitor BUN/creatinine closely. Recommend nephrology consult in light of CKD. EKG showed sinus rhythm with inferior Q waves suggestive of old inferior infarct. Echocardiogram on 05/17/18 showed EF of 45% with mild to moderate MR. Patient would need ischemic workup once euvolemic to rule out ischemic heart disease. (2) Acute respiratory failure with hypoxia Current Visit: Yes Status: Acute Currently on BiPAP. Recommend to monitor ABGs and gradually wean off BiPAP. (3) Hypertensive urgency Current Visit: Yes Status: Acute Blood pressure currently controlled on Nicardine drip. Nicardipine drip can be switched to oral formulation. BP goal is 130/80. Please resume beta juan ramon as patient was on it from home. Discussion w patient/family: The assessment and plan as outlined above was discussed with the patient and/or family members who expressed understanding and agreement. All questions were answered. Thank you for involving us in the care of your patient. Please call with any questions. History of Present Illness Consult date: 05/29/18 Requesting physician: Guerline Ruvalcaba Consult reason: CHF exacerbation Chief complaint: Shortness of breath History of present illness: Ms. Schroeder is a 68 year old pleasant female with history of diastolic CHF, hypertension, CKD, bronchitis, who who was recently hospitalized 2 weeks ago for acute respiratory failure secondary to CHF exacerbation. She was discharged home on Lasix 20 mg daily. However she presented yesterday with moderate to severe shortness of breath at rest with associated dry cough and was subsequently brought to the emergency room. On arrival she was found to have hypertensive urgency with a pressure of 200/100 mmHg. She has since been stabilized on diuretics, BiPAP, and antihypertensives. She feels better today. No complaints of chest pain, shortness of breath or palpitations. She denies orthopnea, abdominal discomfort or bilateral leg swelling. She reports that she takes her medications regularly and denies dietary indiscretion with high salt intake. She said she had a stress test over 4 years ago at another facility and was never told the results. She has never had a coronary angiogram. Past Med Surg Social Fam HX - Past Medical History Medical history: CHF, hypertension, renal disease Psychiatric history: anxiety - Past Surgical History Surgical History: other (Left arm AV shunt) Additional surgical history: left upper extremity AV fistula - Social History Smoking Status: Current every day smoker Smokeless Tobacco Status: No Alcohol use: none Drug use: none Medications and Allergies Aspirin 81 mg PO DAILY 05/10/17 [History] Furosemide [Lasix] 20 mg PO DAILY 05/10/17 [History] Isosorbide MONOnitrate (24 HR) [Imdur] 60 mg PO DAILY 05/10/17 [History] LORazepam [Ativan] 1 mg PO BID 05/10/17 [History] NIFEdipine [Adalat cc] 30 mg PO QPM 05/10/17 [History] NIFEdipine [Adalat cc] 60 mg PO QAM 05/10/17 [History] Carvedilol 6.25 mg PO BID 05/17/18 [History] Azithromycin [Zithromax] 250 - 500 mg PO DAILY #6 tablet 05/28/18 [Rx] Levothyroxine Sodium [Levo-T] 50 mcg PO DAILY 05/29/18 [History] Allergy/AdvReac Type Severity Reaction Status Date / Time Amoxicillin Allergy Difficulty Verified 05/29/18 02:22 Swallowing doxycycline Allergy Anaphylaxis Verified 05/29/18 02:22 prednisone Allergy Anaphylaxis Verified 05/29/18 02:22 Sulfa (Sulfonamide Allergy Difficulty Verified 05/29/18 02:22 Antibiotics) Swallowing All Systems Review: The remainder of the systems were reviewed and are negative - Constitutional Constitutional: no anorexia - EENT Eyes: no blurred vision Nose, mouth and throat: no bleeding gums - Cardiovascular Cardiovascular: no chest pain at rest, no irregular heart rhythm, no leg edema, no syncope - Respiratory Respiratory: cough - Gastrointestinal Gastrointestinal: no abdominal pain - Genitourinary Genitourinary: no dysuria - Integumentary Integumentary: no erythema - Neurological Neurological: no abnormal speech, no dizziness Physical Examination Vital Signs, Last 4 Hours Temp Pulse Resp BP Pulse Ox 05/29/18 12:46 79 164/78 05/29/18 12:07 72 155/69 05/29/18 12:02 79 05/29/18 11:59 79 23 100 05/29/18 11:45 98.4 F 77 18 152/73 100 05/29/18 11:28 75 169/77 100 05/29/18 11:04 154/69 05/29/18 10:48 70 157/68 05/29/18 10:20 67 20 136/65 97 05/29/18 09:41 81 20 165/74 96 05/29/18 09:33 87 20 186/96 94 General: Conversant, Other (On BiPAP) HEENT: Atraumatic Neck: No JVD Cardiac: Reg Rate and Rhythm, Normal S1 and S2 Lungs: Other (Bibasilar faint rales, no wheezes) Neuro: Alert and responsive Abdomen: Soft Musculoskeletal: No Chest Wall Tenderness Extremities: No Cyanosis, No Edema Results 05/29/18 07:53 05/29/18 07:53 Lab Results 05/29/18 05/29/18 05/29/18 07:53 07:53 07:53 WBC 12.5 H Hgb 12.3 Hct 37.2 Plt Count 312 INR 1.2 APTT 56.4 H Sodium 139 Potassium 3.5 Chloride 103 Carbon Dioxide 21 L BUN 22 Creatinine 1.85 H Glucose 138 H Calcium 9.2 Magnesium 2.2 Total Bilirubin 0.5 AST 17 ALT 28 Alkaline Phosphatase 72 Troponin I 0.07 H* B-Natriuretic Peptide TSH 05/29/18 05/29/18 07:53 07:53 WBC Hgb Hct Plt Count INR APTT Sodium Potassium Chloride Carbon Dioxide BUN Creatinine Glucose Calcium Magnesium Total Bilirubin AST ALT Alkaline Phosphatase Troponin I B-Natriuretic Peptide 2963 H TSH 10.844 H Consult Discharge Plan - Plan Referrals: NONE,PCP [Primary Care Provider] -
[2018-05-29] MEDS: *HR* Heparin 5,000 UNIT/ML VIAL SQ SCH ×2 (14:38→21:02)
[2018-05-29] MEDS: NIFEdipine XL (24 HR) 30 MG TAB.ER.24 PO SCH (18:07)
[2018-05-29 19:17] LABS: Bilirubin,Urine Negative (Negative); Blood,Urine Negative (Negative); Clarity,Urine Clear (Clear); Color,Urine Yellow (Yellow); Glucose,Urine (UA) Normal (Normal); Ketones,Urine Negative (Negative); Leukocyte Esterase,Urine Small (Negative); Nitrite,Urine Negative (Negative); Protein,Urine Negative (Neg-Trace); Urobilinogen,Urine Normal (Normal)
[2018-05-29 19:20] LABS: Bacteria,Urine None Seen per hpf (None-Few); Hyaline Casts,Urine None Seen per lpf (None-Few); RBC,Urine 0-3 per hpf (0-3); Squamous Epithelial Cell,Urine Many per lpf (None-Few)
[2018-05-30] MEDS: Ipratropium/Albuterol Neb 3 ML IH SCH ×7 (00:01→23:55)
[2018-05-30] MEDS: niCARdipine 40 MG/200 ML MLS IVC SCH (03:05)
[2018-05-30 04:30] LABS: Basophils % 0.1 %; Hematocrit 30.1 % (35.3-44.9); Immature Granulocytes % 0.3 % (0-4); Lymphocytes # 0.8 K/mcL (0.6-4.6); Lymphocytes % 7.1 %; Mean Corpuscular HGB Conc 32.9 g/dL (31.6-35.5); Mean Corpuscular Hemoglobin 30.4 pg (28.0-33.3); Mean Corpuscular Volume 92.3 fL (83.0-100.0); Mean Platelet Volume 10.6 fL (9.4-12.4); Monocytes # 0.1 K/mcL (0.0-1.3); Monocytes % 1.1 %; Neutrophils # 10.5 K/mcL (1.6-8.9); Platelet Count 301 K/mcL (140-400); Red Blood Count 3.26 M/mcL (3.82-4.97); Red Cell Distribution Width 15.1 % (11.5-14.5); Segmented Neutrophils % 91.4 %
[2018-05-30 04:41] LABS: Hemoglobin 9.9 g/dL (11.5-15.4)
[2018-05-30 04:47] LABS: Potassium 3.1 mEq/L (3.5-5.1)
[2018-05-30 04:48] LABS: Calcium 8.8 mg/dL (8.6-10.3)
[2018-05-30] MEDS ORDERED: Levothyroxine 25 MCG TABLET PO SCH (06:30)
[2018-05-30] MEDS: *HR* Heparin 5,000 UNIT/ML VIAL SQ SCH ×3 (06:30→20:48)
[2018-05-30] MEDS: Insulin LISPRO 300 UNITS/3 ML VIAL SQ SCH ×4 (06:32→20:48)
[2018-05-30] MEDS: Aspirin 81 MG TAB.CHEW PO SCH (07:55)
[2018-05-30] MEDS: *HR* LORazepam 1 MG TABLET PO SCH ×2 (07:55→20:48)
[2018-05-30] MEDS: Furosemide 40 MG/4 ML VIAL IVP SCH (07:55)
[2018-05-30] MEDS: MethylPREDNISolone 40 MG/ML VIAL IVP SCH ×2 (07:55→16:32)
[2018-05-30] MEDS: Nicotine 14 MG PATCH.TD24 TD SCH (07:56)
--- NOTE | 2018-05-30 08:58 | Internal Med Progress Note ---
Hospitalist Progress Note - Encounter Date of Encounter: 05/30/18 Time of Encounter: 08:57 - Subjective Interval History: 68 F Seen and evaluated at the bedside Admitted and being managed for acute resp failure secondary to CHFE, Pulm edema and COPDE with bronchitis She denies new complains this mrn She is asking to have an appointment set up with Dr. Driscoll prior to discharge She is otherwise improved clinically from 05/29 - Exam Vitals: Temp Pulse Resp BP Pulse Ox 98.6 F 93 18 125/65 95 05/30/18 07:42 05/30/18 07:42 05/30/18 07:42 05/30/18 07:42 05/30/18 07:42 Exam: General: Not in distress Head: atraumatic, normocephalic, Eye: normal appearance, PERRL, no scleral icterus, no conjunctival injection ENT: mucous membranes moist, normal external ear exam Neck: normal inspection, trachea midline, full ROM, positive for JVD Chest: Bibasal rales, few scattered expiratory bilateral wheezing Cardiovascular: S1 and S2, RRR no murmurs or thrills appreciated Abdomen: Bowel sounds present normoactive x-4 quadrants. Abdomen is soft, nondistended. no Epigastric tenderness. No guarding or rebound. No organomegaly noted, musculoskeletal: Spontaneously moving all extremities. no edema, no calf tenderness . L AVF, palpable thrill Skin: warm, dry, intact. No rash Neuro: Alert and oriented x4. Sensation light touch intact. Cranial nerves 2- 12 is intact. Not aphasic, no focal deficit Psych: Patient's affect is normal - Assessment and Plan (1) Chronic kidney disease, stage IV (severe) Current Visit: Yes Status: Chronic Assessment and Plan: Status post fistula placement Not on dialysis currently Baseline creatinine anywhere from 1.7-2.14 currently 2.03 ON diuresis with lasix Consider nephro eval, she states she follows with Dr. Willingham (2) Acute respiratory failure with hypoxia Current Visit: Yes Status: Acute Assessment and Plan: Presented with hypoxis due to pulm edema, from CHFrEF exacerbation Continue O2 supplement Wean as tolerated Consider 6 mins walk test prior to discharged This is her 2nd episode of hypoxia in the recent months (3) Hypertensive urgency Current Visit: Yes Status: Resolved Assessment and Plan: resolved Off nicardipine drip Continue home CCB and BB BP is at goal (4) Acute pulmonary edema Current Visit: Yes Status: Acute Assessment and Plan: Sudden onset of shortness of breath, uncontrolled blood pressure 200/100 Rpt CXR from today 11/5 a.m shows persistent but improved pulm edema Decrease lasix to 40mg IV daily due to renal function and adequate urinary output Continue I/Os monitoring Continue to monitor Chem (5) Acute combined systolic and diastolic heart failure with preserved ejection fraction Current Visit: Yes Status: Acute Assessment and Plan: Most likely secondary to uncontrolled blood pressure Started on Lasix 40 mg IV twice a day Strict intake and output Cardiology consulted, appreciate input I/O + Continue lasix at 40mg IV daily Fluid restriction diet Ischemic work up as outpatient Follows up with Dr. Driscoll, requests appt at time of discharge TTE on 05/12 LVEF 45%. Mild global LV systolic dysfunction. Mild concentric left ventricular hypertrophy. Moderate left ventricular diastolic dysfunction. LV chamber size upper limits of normal. Normal right ventricular structure and function. Mild-moderate mitral regurgitation. No pulmonary hypertension. There is a trivial pericardial effusion present. (6) Acute bronchitis Current Visit: Yes Status: Acute Assessment and Plan: Diffuse wheezing in the anterior chest, cough Respiratory viral panel negative Urine antigens negative Sputum culture pendingg, will follow Solu-Medrol 40 mg every 8 hours Continue steroids levaquin and duonebs (7) DVT prophylaxis Current Visit: Yes Status: Acute Assessment and Plan: Heparin subcutaneous (8) Anxiety Current Visit: Yes Status: Acute Assessment and Plan: Continue home dose lorazepam - Time Spent with Patient Total time spent is greater than 50% in coordination of care (as documented) at patient's floor/unit and/or counseling patient: Plan of Care Discussed with: patient Internal Medicine: Result - Labs CBC & Chem 7: 05/30/18 03:49 05/30/18 03:49 Labs: Short CBC 05/30/18 Range/Units 03:49 WBC 11.5 H (4.3-11.1) K/mcL Hgb 9.9 L D (11.5-15.4) g/dL Hct 30.1 L (35.3-44.9) % Plt Count 301 (140-400) K/mcL Neutrophils # 10.5 H (1.6-8.9) K/mcL BMP 05/30/18 03:49 Sodium 137 Potassium 3.1 L Chloride 103 Carbon Dioxide 22 L BUN 30 H Creatinine 2.03 H Glucose 141 H Calcium 8.8 Cardiac Enzymes 05/29/18 05/29/18 Range/Units 12:42 21:28 Troponin I 0.05 H* 0.07 H* (< 0.04) ng/mL Urine 05/29/18 Range/Units 19:05 Urine Color Yellow (Yellow) Urine Clarity Clear (Clear) Urine pH 6.0 (5.0-8.0) pH Units Ur Specific [place] 1.010 (1.010-1.025) Urine Protein Negative (Neg-Trace) mg/dL Urine Glucose (UA) Normal (Normal) mg/dL - ABG Interpretation ABG results: ABG ABG pH 7.50 pH Units (7.32-7.45) H 05/29/18 12:03 ABG pCO2 34 mmHg (35-45) L 05/29/18 12:03 ABG pO2 97 mmHg (85-104) 05/29/18 12:03 ABG O2 Saturation 98 % (95-98) 05/29/18 12:03 PT/INR, D-dimer PT 13.6 Seconds (9.4-12.1) H 05/29/18 07:53 - Impressions Impressions Chest X-Ray 05/30/18 06:00 IMPRESSION: Persistent but improving interstitial edema. Stable small right pleural effusion. D/ / Judah Her MD / Judah Her MD Interpreting Provider: Judah Her MD Consult Discharge Plan - Plan Referrals: NONE,PCP [Non-Partnered Physician] - (6) Acute bronchitis Qualifiers: Bronchitis organism: unspecified organism Qualified Code(s): J20.9 - Acute bronchitis, unspecified
--- NOTE | 2018-05-30 10:46 | Cardiology Progress Note ---
Addendum entered and electronically signed by Duong Viera DO 05/30/18 11:58: I have personally performed a face to face evaluation on this patient. I have reviewed and agree with the care plan. History and Exam by me shows: Decompensated CHF - HF with mildly reduced EF. Hypertensive urgency. Chronic kidney disease. Tobacco use. Probable COPD, never formally diagnosed. Currently not on any maintenance inhalers. Agree with the impressions and plan as outlined below. No further inpatient cardiology recommendations. Outpatient stress test recommended by Dr. Gomez, which is reasonable. No current chest pain reported. Cardiology will sign off. All questions answered. Thanks, Duong Viera DO, [facility] Original Note: Date of Encounter: 05/30/18 Time of Encounter: 10:44 Assessment and Plan (1) Congestive heart failure Current Visit: Yes Status: Acute Symptoms c/w acute CHF exacerbation, likely secondary to inadequate diuretic dose from her last hospitalization and triggered by acute bronchitis. Currently on IV Lasix 40 mg BID. Cumulative I/O +740mL. Recommend strict I/Os, Na and fluid restriction, daily weights. Renal function has worsened. Stage IV CKD at baseline. Creatinine yesterday 1.85, 2.03 today--still within prior baseline. Recommend nephrology consult in light of CKD. EKG showed sinus rhythm with inferior Q waves suggestive of old inferior infarct. TTE 05/17/18 showed mildly reduced EF of 45% with mild to moderate MR. Follows with Dr. Yamila bowers. Previous notes reviewed and he details a hx of systolic CHF--EF not detailed. Discussed with pt regarding possible ischemic work-up in the future. She denies chest pain. Given CKD stage IV, favor outpt stress test. No urgent indication for inpt ischemic work-up. Cardiology signing off. Reconsult PRN. Will coordinate outpt follow-up in 2-3 weeks. Qualifiers: Heart failure type: unspecified Heart failure chronicity: acute on chronic Qualified Code(s): I50.9 - Heart failure, unspecified (2) Hypertensive urgency Current Visit: Yes Status: Acute On Nicardipine drip yesterday, now switched to oral formulation. BP goal is 13 0/80. Home BB resumed. (3) Chronic kidney disease, stage IV (severe) Current Visit: Yes Status: Chronic Follows with Dr. Patterson as outpt. Will consult given CHF exacerbation/diuresis/mild increase in SCr today. Discussion w patient/family: The assessment and plan as outlined above was discussed with the patient and/or family members who expressed understanding and agreement. All questions were ans wered. Thank you for involving us in the care of your patient. Please call with any questions. I will discuss all the above with Dr. Viera and make changes as necessary. Subjective Principal diagnosis: CHF Interval history: Dyspnea improving. Pt denies chest pain. Objective Vital Signs, Last 4 Hours Temp Pulse Resp BP Pulse Ox 05/30/18 08:00 101 140/75 05/30/18 07:42 98.6 F 93 18 125/65 95 05/30/18 07:33 16 97 05/30/18 07:00 94 125/65 Vital Signs Temp Pulse Resp BP Pulse Ox 05/30/18 08:00 101 140/75 05/30/18 07:42 98.6 F 93 18 125/65 95 05/30/18 07:33 16 97 05/30/18 07:00 94 125/65 05/30/18 05:03 98 124/63 05/30/18 04:06 18 96 05/30/18 04:00 95 130/68 05/30/18 03:26 99 F 90 26 135/68 94 05/30/18 03:05 95 135/68 05/30/18 02:00 93 144/63 05/30/18 01:52 95 05/30/18 01:00 93 129/68 05/30/18 00:30 93 05/30/18 00:03 18 95 05/30/18 00:00 96 142/70 05/29/18 23:37 99.4 F 94 20 139/68 94 05/29/18 23:00 92 139/65 05/29/18 22:00 89 136/67 05/29/18 21:20 86 05/29/18 21:00 89 148/74 05/29/18 20:49 12 97 05/29/18 20:00 89 151/75 05/29/18 19:30 87 154/78 05/29/18 19:00 103 111/94 05/29/18 18:52 98.8 F 94 19 178/81 05/29/18 18:50 94 178/81 96 05/29/18 18:32 91 165/83 96 05/29/18 18:04 78 156/76 96 05/29/18 17:41 151/79 05/29/18 17:33 87 166/86 97 05/29/18 16:29 151/79 05/29/18 16:24 88 05/29/18 16:07 98.3 F 90 20 143/73 98 05/29/18 15:52 20 95 05/29/18 15:45 90 153/79 95 05/29/18 15:05 86 20 150/73 97 05/29/18 14:42 85 20 151/70 98 05/29/18 14:00 79 151/69 05/29/18 13:30 78 146/68 05/29/18 13:05 86 144/74 99 05/29/18 12:46 79 164/78 05/29/18 12:07 72 155/69 05/29/18 12:02 79 05/29/18 11:59 79 23 100 05/29/18 11:49 25 100 05/29/18 11:45 98.4 F 77 18 152/73 100 05/29/18 11:28 75 169/77 100 05/29/18 11:04 154/69 05/29/18 10:48 70 157/68 Intake and Output 05/29/18 05/30/18 05/30/18 23:59 07:59 15:59 Intake Total 149 / 149 200 / 200 1160 / 1160 Balance 149 / 149 200 / 200 1160 / 1160 Intake: IV Fluids 149 / 149 200 / 200 Cardene Premix 40mg/200ml 40 mg 149 / 149 200 / 200 In 200 ml @ 5 MG/HR 25 mls/hr IVC .Q8H [facility] Rx#:[id number] Oral 1160 / 1160 Other: Meal Breakfast Percent of Meal Consumed 50% Weight 53.2 kg Blood Glucose* 148 151 Patient Weight 05/30/18 23:59 Weight 53.2 kg General: Conversant, No Apparent Distress HEENT: Atraumatic, Normocephaly, Mucus Membranes Moist Neck: Normal carotid pulses Cardiac: Reg Rate and Rhythm, Normal S1 and S2, No Murmur Lungs: Other (diminished) Neuro: Alert and responsive, No focal deficits noted Abdomen: Soft, Non-Tender Skin: No rashes noted on visualized skin Musculoskeletal: No Chest Wall Tenderness Extremities: No Clubbing, No Cyanosis, No Edema, Normal Pulses Results 05/30/18 03:49 05/30/18 03:49 Lab Results 05/29/18 05/29/18 05/30/18 12:42 21:28 03:49 WBC 11.5 H Hgb 9.9 L D Hct 30.1 L Plt Count 301 Sodium Potassium Chloride Carbon Dioxide BUN Creatinine Glucose Calcium Troponin I 0.05 H* 0.07 H* 05/30/18 03:49 WBC Hgb Hct Plt Count Sodium 137 Potassium 3.1 L Chloride 103 Carbon Dioxide 22 L BUN 30 H Creatinine 2.03 H Glucose 141 H Calcium 8.8 Troponin I Short CBC 05/30/18 Range/Units 03:49 WBC 11.5 H (4.3-11.1) K/mcL Hgb 9.9 L D (11.5-15.4) g/dL Hct 30.1 L (35.3-44.9) % Plt Count 301 (140-400) K/mcL Neutrophils # 10.5 H (1.6-8.9) K/mcL BMP 05/30/18 Range/Units 03:49 Sodium 137 (136-145) mEq/L Potassium 3.1 L (3.5-5.1) mEq/L Chloride 103 (98-107) mEq/L Carbon Dioxide 22 L (23-29) mEq/L BUN 30 H (8-23) mg/dL Creatinine 2.03 H (0.60-1.20) mg/dL Glucose 141 H (70-105) mg/dL Calcium 8.8 (8.6-10.3) mg/dL Cardiac Enzymes 05/29/18 05/29/18 Range/Units 21:28 12:42 Troponin I 0.07 H* 0.05 H* (< 0.04) ng/mL Urine 05/29/18 Range/Units 19:05 Urine Color Yellow (Yellow) Urine Clarity Clear (Clear) Urine pH 6.0 (5.0-8.0) pH Units Ur Specific [place] 1.010 (1.010-1.025) Urine Protein Negative (Neg-Trace) mg/dL Urine Glucose (UA) Normal (Normal) mg/dL Impressions Chest X-Ray 05/30/18 06:00 IMPRESSION: Persistent but improving interstitial edema. Stable small right pleural effusion. D/ / Judah Her MD / Judah Her MD Interpreting Provider: Judah Her MD Active Medications Albuterol/Ipratropium (Duoneb) 3 ml IH [id number] MIGUEL Stop: 11/28/18 12:01 Last Admin: 05/30/18 07:33 Dose: 3 ml Aspirin (Aspirin) 81 mg PO DAILY M[facility]UEL Stop: 11/28/18 09:01 Last Admin: 05/30/18 07:55 Dose: 81 mg Carvedilol (Coreg) 6.25 mg PO BIDWM [facility]UEL; Protocol Stop: 11/28/18 17:01 Last Admin: 05/30/18 07:55 Dose: 6.25 mg Dextrose/Water (Dextrose 50% (Syg)) 25 ml IVP AD PRN PRN Reason: Hypoglycemia Stop: 11/28/18 08:44 Furosemide (Lasix) 40 mg IVP BIDDIURETIC MIGUEL Stop: 11/28/18 08:01 Last Admin: 05/30/18 07:55 Dose: 40 mg Glucagon (Glucagen) 1 mg IM ONCE PRN PRN Reason: Hypoglycemia Stop: 11/28/18 08:44 Glucose (Gluctose) 15 gm PO ONCE PRN PRN Reason: Hypoglycemia Stop: 11/28/18 08:44 Glucose (Gluctose) 30 gm PO ONCE PRN PRN Reason: Hypoglycemia Stop: 11/28/18 08:44 Heparin Sodium (Porcine) (Heparin) 5,000 unit SQ Q8HCO MIGUEL Stop: 11/28/18 14:01 Last Admin: 05/30/18 06:30 Dose: 5,000 unit Dextrose (Dextrose 5%) 1,000 mls @ 100 mls/hr IVC .Q10H PRN PRN Reason: HYPOGLYCEMIA Stop: 11/28/18 08:44 Levofloxacin/Dextrose (Levaquin Premix 750mg/150 Ml) 750 mg in 150 mls @ 100 mls/hr IVPB Q48H [facility]; Protocol Stop: 11/30/18 09:01 Insulin Human Lispro (Humalog) 0 units SQ ACHS [facility]; Protocol Stop: 11/29/18 11:31 Levothyroxine Sodium (Synthroid) 50 mcg PO 0630 [facility] Stop: 11/29/18 06:31 Last Admin: 05/30/18 06:30 Dose: 50 mcg Lorazepam (Ativan) 1 mg PO BID [facility] Stop: 11/28/18 09:01 Last Admin: 05/30/18 07:55 Dose: 1 mg Methylprednisolone (Solu-Medrol) 40 mg IVP Q8HR [facility] Stop: 11/28/18 08:01 Last Admin: 05/30/18 07:55 Dose: 40 mg Naloxone HCl (Narcan) 0.4 mg IVP Q2MIN PRN PRN Reason: SEE COMMENTS Stop: 11/28/18 07:35 Nicotine (Nicoderm) 14 mg TD DAILY [facility]; Protocol Stop: 11/28/18 10:31 Last Admin: 05/30/18 07:56 Dose: 14 mg Nifedipine (Procardia Xl) 30 mg PO QPM [facility]; Protocol Stop: 11/28/18 18:01 Last Admin: 05/29/18 18:07 Dose: 30 mg Throat Lozenges (Cepacol Sore Throat Lozenge) 1 each MM Q2H PRN PRN Reason: Sore Throat Stop: 11/29/18 00:46 - Imaging and Cardiology Echo: report reviewed - EKG Interpretation EKG results cardiology: other (12 hr tele AVG HR 93, SR) Consult Discharge Plan - Plan Referrals: NONE,PCP [Non-Partnered Physician] -
--- NOTE | 2018-05-30 16:14 | Nephrology Consult Note ---
<Sierra Rubio - Last Filed: 05/30/18 19:53> Date of Encounter: 05/30/18 Time of Encounter: 16:10 Assessment and Plan (1) Chronic kidney disease, stage IV (severe) Current Visit: Yes Status: Chronic Chronic kidney disease stage IV. She follows with tire rebuilder Dr. Willingham. She is a left AV fistula that was placed 2 years ago. -Etiology likely prerenal in setting of decreased oral intake and Lasix -Creatinine 2.03 (1.85) worsened, baseline creatinine 1.7-2.1 -GFR 24 (baseline 23 to 29) -I&O: 580/1260 appropriate urine output -urinalysis: positive leukocyte esterase, WBC 5-15. Asymptomatic. Plan: -acute kidney injury likely prerenal in setting of decreased oral intake of fluids and Lasix. creatinine has worsened from baseline secondary to Lasix for diuresis since she has pleural effusion. At home she takes Lasix 20 mg daily and yesterday she received Lasix 40 mg IV b.i.d. That has been stopped and she is now only receiving Lasix 40 mg IV once daily. 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 TTE 04/2018: EF 45% chest x-ray demonstrated in interstitial edema and small right pleural effusion. BNP 2963 Plan: -continue the Lasix 40 mg daily. The b.i.d. dosing of Lasix 40 mg has been stopped. -Management per primary team (3) Hypokalemia Current Visit: Yes Status: Acute Hypokalemia likely secondary to Lasix. Potassium 3.1 -was given potassium chloride 40 mg today. continue supplementation. Will continue to monitor History of Present Illness - Reason for Consult Consult date: 05/30/18 Chronic Kidney Disease Requesting physician: Onesimo Ramsay - Chief Complaint Shortness of breath - History of Present Illness Ms. Schroeder is a 68-year-old female with past medical history of chronic kidney disease stage IV, CHF, hypertension who presented to [facility] complaining of shortness of breath. Nephrology was consulted due to chronic kidney disease and management of diuresis. Upon examination the patient she reported that for the past few days she has had increased shortness of breath. She would urgent care on Wednesday was given azithromycin however she only took the 1st dose because it made her feel anxious. Then Wednesday she came to the ED. She is being treated for acute bronchitis and acute congestive heart failure exacerbation demonstrated by chest x-ray. The patient reported that her tire rebuilder is Dr. Willingham and she has a left AV fistula that was placed 2 years ago. She takes 20 mg Lasix daily for 4 years now. She reports fever, chills, wheezing. She denies change in urination, hematuria, dysuria, leg edema, weight gain. She sleeps propped up. Denies NSAID use. Denies alcohol, drug use. She is a current smoker of half pack per day. Past Med Surg Social Fam HX - Past Medical History Attestation: Yes The following information was validated with the patient. Medical history: CHF, hypertension, renal disease Psychiatric history: anxiety - Past Surgical History Surgical History: other (Left arm AV shunt) Additional surgical history: left upper extremity AV fistula - Social History Smoking Status: Current every day smoker Smokeless Tobacco Status: No Alcohol use: none Drug use: none Medications and Allergies Aspirin 81 mg PO DAILY 05/10/17 [History] Furosemide [Lasix] 20 mg PO DAILY 05/10/17 [History] Isosorbide MONOnitrate (24 HR) [Imdur] 60 mg PO DAILY 05/10/17 [History] LORazepam [Ativan] 1 mg PO BID 05/10/17 [History] NIFEdipine [Adalat cc] 30 mg PO QPM 05/10/17 [History] NIFEdipine [Adalat cc] 60 mg PO QAM 05/10/17 [History] Carvedilol 6.25 mg PO BID 05/17/18 [History] Levothyroxine Sodium [Levo-T] 50 mcg PO DAILY 05/29/18 [History] Allergy/AdvReac Type Severity Reaction Status Date / Time Amoxicillin Allergy Difficulty Verified 05/29/18 02:22 Swallowing doxycycline Allergy Anaphylaxis Verified 05/29/18 02:22 prednisone Allergy Anaphylaxis Verified 05/29/18 02:22 Sulfa (Sulfonamide Allergy Difficulty Verified 05/29/18 02:22 Antibiotics) Swallowing Review of Systems Constitutional: chills, fever(s), no fatigue Nose, mouth and throat: no headache(s) Cardiovascular: no chest pain, no edema, no leg edema, no palpitations Respiratory: dyspnea, wheezing, no cough Gastrointestinal: no abdominal pain, no melena, no nausea, no vomiting Genitourinary Female: no change in urinary stream, no difficulty urinating, no dysuria, no hematuria, no urinary urgency Integumentary: no lesions, no pruritus Neurological: no confusion, no headache(s) Exam - Vital Signs Vital signs: Initial Vital Signs Temp Pulse Resp BP Pulse Ox 98.2 F 111 22 200/83 88 05/29/18 07:41 05/29/18 07:41 05/29/18 07:41 05/29/18 07:41 05/29/18 07:41 Vital Signs - Last 8 Hours Temp Pulse Resp BP Pulse Ox 05/30/18 15:45 16 95 05/30/18 11:11 98.5 F 99 16 147/72 93 Intake and Output 05/30/18 05/30/18 05/30/18 07:59 15:59 23:59 Intake Total 200 / 200 1280 / 1280 Output Total 800 / 800 Balance 200 / 200 480 / 480 Intake: IV Fluids 200 / 200 Cardene Premix 40mg/200ml 40 mg 200 / 200 In 200 ml @ 5 MG/HR 25 mls/hr IVC .Q8H MIGUEL Rx#:[id number] Oral 1280 / 1280 Output: Urine 800 / 800 Other: Meal Lunch Percent of Meal Consumed 75% Weight 53.2 kg Blood Glucose* 151 278 Patient Weight 05/30/18 23:59 Weight 53.2 kg - General Appearance Exam: Gen.: Vitals noted. No acute distress. AAOx3 HEENT: oropharynx clear, Normocephalic, atraumatic Neck: Supple. No adenopathy. Cardiac: RRR, no murmur, +S1/S2 Pulmonary: bilaterally rales no wheezes, rhonchi, equal chest expansion Abdomen: soft, nontender, Bowel sounds noted, no guarding MSK: ROM intact, no joint swelling noted Extremities: no BLE edema, nontender calf, no cyanosis or clubbing Neuro: A&Ox3, moves all extremities, no focal deficits Psych: Appropriate mood and behavior Results - Lab Results 05/30/18 03:49 05/30/18 03:49 Most recent lab results ABG pH 7.50 pH Units (7.32-7.45) H 05/29/18 12:03 ABG pCO2 34 mmHg (35-45) L 05/29/18 12:03 ABG pO2 97 mmHg (85-104) 05/29/18 12:03 ABG HCO3 26 mEq/L (21-27) 05/29/18 12:03 ABG O2 Saturation 98 % (95-98) 05/29/18 12:03 Calcium 8.8 mg/dL (8.6-10.3) 05/30/18 03:49 Phosphorus 4.2 mg/dL (2.7-4.5) 05/29/18 07:53 Magnesium 2.2 mg/dL (1.6-2.6) 05/29/18 07:53 Consult Discharge Plan - Plan Referrals: Merissa Barroso CNP [Advanced Practice Nurse] - 06/09/18 2:00 pm Onesimo Ramsay CNP [Advanced Practice Nurse] - (Office will call the patient at home with follow up appointment) <Annita Odonnell - Last Filed: 05/31/18 23:39> Date of Encounter: 05/30/18 Assessment and Plan (1) Acute kidney injury Current Visit: Yes Status: Acute (2) Chronic kidney disease, stage IV (severe) Current Visit: Yes Status: Chronic (3) Acute respiratory failure with hypoxia Current Visit: Yes Status: Acute (4) Anemia Current Visit: Yes Status: Acute Qualifiers: Anemia type: unspecified type Qualified Code(s): D64.9 - Anemia, unspecified (5) Hypokalemia Current Visit: Yes Status: Acute (6) Hypertensive urgency Current Visit: Yes Status: Resolved Exam - Vital Signs Vital signs: Initial Vital Signs Temp Pulse Resp BP Pulse Ox 98.2 F 111 22 200/83 88 05/29/18 07:41 05/29/18 07:41 05/29/18 07:41 05/29/18 07:41 05/29/18 07:41 Vital Signs - Last 8 Hours Temp Pulse Resp BP Pulse Ox 05/31/18 20:13 30 161/84 9 05/31/18 19:31 97.6 F 83 31 161/84 97 05/31/18 16:41 32 186/93 98 05/31/18 16:00 97.4 F L 99 32 186/93 98 05/31/18 15:57 26 95 Intake and Output 05/31/18 05/31/18 05/31/18 07:59 15:59 23:59 Intake Total 1090 / 1090 120 / 120 Output Total 200 / 200 300 / 300 Balance -200 / -200 1090 / 1090 -180 / -180 Intake: IV Fluids 150 / 150 Levaquin Premix 750mg/150 mL 150 / 150 750 mg In 150 ml @ 100 mls/hr IVPB Q48H MIGUEL Rx#:[id number] Oral 940 / 940 120 / 120 Output: Urine 200 / 200 300 / 300 Other: Meal Breakfast Dinner Percent of Meal Consumed 70% 0% # Voids 1 Weight 54.7 kg Blood Glucose* 165 184 110 Patient Weight 05/31/18 23:59 Weight 54.7 kg Results - Lab Results 05/31/18 03:41 05/31/18 03:41 Most recent lab results ABG pH 7.50 pH Units (7.32-7.45) H 05/29/18 12:03 ABG pCO2 34 mmHg (35-45) L 05/29/18 12:03 ABG pO2 97 mmHg (85-104) 05/29/18 12:03 ABG HCO3 26 mEq/L (21-27) 05/29/18 12:03 ABG O2 Saturation 98 % (95-98) 05/29/18 12:03 Calcium 9.2 mg/dL (8.6-10.3) 05/31/18 03:41 Phosphorus 4.2 mg/dL (2.7-4.5) 05/29/18 07:53 Magnesium 2.2 mg/dL (1.6-2.6) 05/29/18 07:53 Urine Creatinine 55 mg/dL 05/31/18 06:30 Urine Total Protein 17 mg/dL (1-14) H 05/31/18 06:30 - Attending Attestation I examined this patient and my medical decision-making was reviewed with the Resident Physician. I agree with the documented findings, disposition and treatment plan as described except to the extent set forth below. Inbrief; 68 y o female with PMH of Stage [address] Tarsha, HTN and CHF admitted with SOB. Renal consulted for help with diuresis. On exam lungs noted with coarse BS bilat but no LE edema bilat. CXR showed improved interstitial edema. Scr noted elevated but still within range of fluctuation. Agree with decreased lasix dosing. Will check urine for proteinuria and also urea to help assess volume status. Will suggest adding albumin to lasix regimen to aid diuresis. No acute indication for RN ORTHOPEDIC at this point.
[2018-05-30] MEDS: NIFEdipine XL (24 HR) 30 MG TAB.ER.24 PO SCH (16:32)
[2018-05-30] MEDS ORDERED: Albumin 25% 25gram/100mL 25 GM/100 ML IV.SOLN IVPB ONE (19:49)
[2018-05-30] MEDS ORDERED: Haloperidol Lactate 5 MG/ML VIAL ONE (23:35)
[2018-05-31] MEDS: Ipratropium/Albuterol Neb 3 ML IH SCH ×7 (00:24→23:32)
[2018-05-31] MEDS: MethylPREDNISolone 40 MG/ML VIAL IVP SCH ×3 (00:26→20:48)
[2018-05-31 02:58] LABS: Adenovirus Not Detected (Not Detect); Bordetella Pertussis Not Detected (Not Detect); Chlamydophila pneumoniae Not Detected (Not Detect); Coronavirus 229E Not Detected (Not Detect); Coronavirus HKU1 Not Detected (Not Detect); Coronavirus NL63 Not Detected (Not Detect); Coronavirus OC43 Not Detected (Not Detect); Human Metapneumovirus Not Detected (Not Detect); Human Rhinovirus/Enterovirus Not Detected (Not Detect); Influenza A Subtype 2009 H1 Not Detected (Not Detect); Influenza A Untypeable Not Detected (Not Detect); Influenza B Not Detected (Not Detect); Mycoplasma pneumoniae Not Detected (Not Detect); Parainfluenza Virus 1 Not Detected (Not Detect); Parainfluenza Virus 2 Not Detected (Not Detect); Parainfluenza Virus 3 Not Detected (Not Detect); Parainfluenza Virus 4 Not Detected (Not Detect); Respiratory Syncytial Virus Not Detected (Not Detect)
[2018-05-31 04:03] LABS: Hematocrit 29.2 % (35.3-44.9); Hemoglobin 9.5 g/dL (11.5-15.4); Immature Granulocytes % 0.5 % (0-4); Lymphocytes # 0.8 K/mcL (0.6-4.6); Lymphocytes % 6.9 %; Mean Corpuscular HGB Conc 32.5 g/dL (31.6-35.5); Mean Corpuscular Hemoglobin 30.2 pg (28.0-33.3); Mean Corpuscular Volume 92.7 fL (83.0-100.0); Mean Platelet Volume 10.2 fL (9.4-12.4); Monocytes # 0.2 K/mcL (0.0-1.3); Monocytes % 1.5 %; Neutrophils # 9.9 K/mcL (1.6-8.9); Platelet Count 289 K/mcL (140-400); Red Blood Count 3.15 M/mcL (3.82-4.97); Red Cell Distribution Width 15.5 % (11.5-14.5); Segmented Neutrophils % 91.1 %
[2018-05-31 04:24] LABS: Calcium 9.2 mg/dL (8.6-10.3)
[2018-05-31] MEDS: Melatonin 3 MG TABLET PO SCH ×2 (06:13→20:47)
[2018-05-31] MEDS: *HR* Heparin 5,000 UNIT/ML VIAL SQ SCH ×3 (06:19→20:48)
[2018-05-31 06:54] LABS: Protein/Creatinine Ratio,Urine 0.31 mg/mg (0.00-0.20)
[2018-05-31] MEDS: Nicotine 14 MG PATCH.TD24 TD SCH (08:05)
[2018-05-31] MEDS: *HR* LORazepam 1 MG TABLET PO SCH ×2 (08:05→20:48)
[2018-05-31] MEDS: Furosemide 40 MG/4 ML VIAL IVP SCH (08:05)
[2018-05-31] MEDS: Aspirin 81 MG TAB.CHEW PO SCH (08:05)
[2018-05-31] MEDS: Insulin LISPRO 300 UNITS/3 ML VIAL SQ SCH ×4 (08:06→20:50)
[2018-05-31] MEDS ORDERED: Levofloxacin 750 MG/150 ML 750 MG/150 ML BAG IVPB SCH (09:00)
[2018-05-31] MEDS ORDERED: *HR* LORazepam 2 MG/ML VIAL IVP PRN (09:34)
[2018-05-31] MEDS: NIFEdipine XL (24 HR) 60 MG TAB.ER.24 PO SCH (10:16)
--- NOTE | 2018-05-31 12:42 | Internal Med Progress Note ---
Hospitalist Progress Note - Encounter Date of Encounter: 05/31/18 Time of Encounter: 09:00 - Subjective Interval History: Pt still c/o SOB, states better after lasix. No fever. - Exam Vitals: Temp Pulse Resp BP Pulse Ox 98.2 F 99 37 192/106 98 05/31/18 07:22 05/31/18 11:19 05/31/18 11:37 05/31/18 11:19 05/31/18 11:37 Exam: General: In mild respiratory distress Head: atraumatic, normocephalic, Eye: normal appearance, PERRL, no scleral icterus, no conjunctival injection ENT: mucous membranes moist, normal external ear exam Neck: normal inspection, trachea midline, full ROM, positive for JVD Chest: Bibasal rales, No wheezing Cardiovascular: S1 and S2, RRR no murmurs or thrills appreciated Abdomen: Bowel sounds present normoactive x-4 quadrants. Abdomen is soft, nondistended. no Epigastric tenderness. No guarding or rebound. No organomegaly noted, musculoskeletal: Spontaneously moving all extremities. no edema, no calf tenderness . L AVF, palpable thrill Skin: warm, dry, intact. No rash Neuro: Alert and oriented x4. Sensation light touch intact. Cranial nerves 2- 12 is intact. Not aphasic, no focal deficit Psych: Patient's affect is normal - Assessment and Plan (1) Chronic kidney disease, stage IV (severe) Current Visit: Yes Status: Chronic Assessment and Plan: Status post fistula placement Not on dialysis currently Appreciated nephro consult. Decreased lasix dose to 40mg iv daily. Slightly improved renal function today. (2) Acute respiratory failure with hypoxia Current Visit: Yes Status: Acute Assessment and Plan: Presented with hypoxia due to pulm edema, from CHFrEF exacerbation Continue O2 supplement Wean as tolerated Consider 6 mins walk test prior to discharged This is her 2nd episode of hypoxia in the recent months CHF exacerbation treatment. 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 Driscoll, requests appt at time of discharge TTE on 05/12 LVEF 45%. Mild global LV systolic dysfunction. Mild concentric left ventricular hypertrophy. Moderate left ventricular diastolic dysfunction. LV chamber size upper limits of normal. Normal right ventricular structure and function. Mild-moderate mitral regurgitation. No pulmonary hypertension. There is a trivial pericardial effusion present. (6) Acute bronchitis Current Visit: Yes Status: Acute Assessment and Plan: Diffuse wheezing in the anterior chest, cough Respiratory viral panel negative Urine antigens negative Sputum culture pendingg, will follow Taper down steroid gradually as wheezing improved Continue eileen FRANCIS levaquin (7) DVT prophylaxis Current Visit: Yes Status: Acute Assessment and Plan: Heparin subcutaneous (8) Anxiety Current Visit: Yes Status: Acute Assessment and Plan: Continue home dose lorazepam - Time Spent with Patient Total time spent is greater than 50% in coordination of care (as documented) at patient's floor/unit and/or counseling patient: 30 min 25 - 35 minutes Plan of Care Discussed with: patient Internal Medicine: Result - Labs CBC & Chem 7: 05/31/18 03:41 05/31/18 03:41 Labs: Short CBC 05/31/18 Range/Units 03:41 WBC 10.9 (4.3-11.1) K/mcL Hgb 9.5 L (11.5-15.4) g/dL Hct 29.2 L (35.3-44.9) % Plt Count 289 (140-400) K/mcL Neutrophils # 9.9 H (1.6-8.9) K/mcL BMP 05/31/18 03:41 Sodium 136 Potassium 4.0 D Chloride 103 Carbon Dioxide 20 L BUN 40 H Creatinine 1.93 H Glucose 136 H Calcium 9.2 - ABG Interpretation ABG results: ABG ABG pH 7.50 pH Units (7.32-7.45) H 05/29/18 12:03 ABG pCO2 34 mmHg (35-45) L 05/29/18 12:03 ABG pO2 97 mmHg (85-104) 05/29/18 12:03 ABG O2 Saturation 98 % (95-98) 05/29/18 12:03 PT/INR, D-dimer PT 13.6 Seconds (9.4-12.1) H 05/29/18 07:53 Consult Discharge Plan - Plan Referrals: Merissa Barroso CNP [Advanced Practice Nurse] - 06/09/18 2:00 pm Onesimo Ramsay CNP [Advanced Practice Nurse] - (Office will call the patient at home with follow up appointment) (6) Acute bronchitis Qualifiers: Bronchitis organism: unspecified organism Qualified Code(s): J20.9 - Acute bronchitis, unspecified
[2018-05-31] MEDS: Isosorbide MONOnitrate (24 HR) 60 MG TAB.ER.24H PO SCH (13:51)
[2018-05-31] MEDS ORDERED: Ipratropium/Albuterol Neb 3 ML IH PRN (16:54)
[2018-05-31] MEDS: NIFEdipine XL (24 HR) 30 MG TAB.ER.24 PO SCH (17:04)
[2018-05-31] MEDS: hydrALAZINE 25 MG TABLET PO SCH (20:48)
--- NOTE | 2018-05-31 23:16 | Nephrology Progress Note ---
Date of Encounter: 05/31/18 Time of Encounter: 12:00 - Assessment and Plan (1) Acute kidney injury Current Visit: Yes Status: Acute SCr slightly improved with decreased lasix dose from bid to daily at 1.93, GFR 26 UOp noted at 800c which is not impressive Continue to avoid nephrotoxins if possible Check urine for urea and creatinine to help assess volume status (2) Chronic kidney disease, stage IV (severe) Current Visit: Yes Status: Chronic GFR at baseline in the 20s Urine shows trace proteinuria only, not significant (3) Acute respiratory failure with hypoxia Current Visit: Yes Status: Acute Etiology likely multifactorial; with bronchitis and CHF though of note pt odes not have much signs of volume overload anywhere except in the lungs. Careful diuresis advised. Can continue lasix at current dose and add albumin to regimen Continue fluid restriction (4) Anemia Current Visit: Yes Status: Acute Hgb noted at 9.5, was 12 on admission. Etiology unclear, will defer management to primary team. continued decline might worse SO as well. Qualifiers: Anemia type: unspecified type Qualified Code(s): D64.9 - Anemia, unspecified (5) Hypokalemia Current Visit: Yes Status: Acute Resolved after repletion, will monitor (6) Hypertensive urgency Current Visit: Yes Status: Resolved BP fluctuating likely due to respiratory condition, continue current regimen for now but can increase hydralazine if needed Subjective Principal diagnosis: CHF Interval history: Pt seen and examined still appearing visibly SOB. Can speak full sentences with pauses due to SOB. Case discussed with nurse who reports pt has been anxious lately. Objective - Vital Signs Vital signs: Vital Signs Temp Pulse Resp BP Pulse Ox 05/31/18 20:13 30 161/84 9 05/31/18 19:31 97.6 F 83 31 161/84 97 05/31/18 16:41 32 186/93 98 05/31/18 16:00 97.4 F L 99 32 186/93 98 05/31/18 15:57 26 95 05/31/18 11:37 37 98 05/31/18 11:20 22 92 05/31/18 11:19 99 22 192/106 91 05/31/18 07:29 20 96 05/31/18 07:22 98.2 F 101 20 174/83 94 05/31/18 03:54 98.6 F 86 16 158/76 95 11/06/18 01:00 141/60 05/31/18 00:20 31 98 05/30/18 23:55 12 96 Intake and Output 05/31/18 05/31/18 05/31/18 07:59 15:59 23:59 Intake Total 1090 / 1090 120 / 120 Output Total 200 / 200 300 / 300 Balance -200 / -200 1090 / 1090 -180 / -180 Intake: IV Fluids 150 / 150 Levaquin Premix 750mg/150 mL 150 / 150 750 mg In 150 ml @ 100 mls/hr IVPB Q48H MIGUEL Rx#:[id number] Oral 940 / 940 120 / 120 Output: Urine 200 / 200 300 / 300 Other: Meal Breakfast Dinner Percent of Meal Consumed 70% 0% # Voids 1 Weight 54.7 kg Blood Glucose* 165 184 110 Patient Weight 05/31/18 23:59 Weight 54.7 kg - General Appearance General appearance: Present: chronically ill, anxious EENT: Present: ATNC, mucous membranes moist Neck: Present: no JVD, supple Cardiology: Present: no edema, normal S1, normal S2 Gastrointestinal: Present: no tenderness, no guarding Integumentary: Present: warm and dry Neurologic: Present: no focal deficit Musculoskeletal: Present: no deformities Psychiatric: Present: mood/affect appropriate - Lab 05/31/18 03:41 05/31/18 03:41 Most recent lab results ABG pH 7.50 pH Units (7.32-7.45) H 05/29/18 12:03 ABG pCO2 34 mmHg (35-45) L 05/29/18 12:03 ABG pO2 97 mmHg (85-104) 05/29/18 12:03 ABG HCO3 26 mEq/L (21-27) 05/29/18 12:03 ABG O2 Saturation 98 % (95-98) 05/29/18 12:03 Calcium 9.2 mg/dL (8.6-10.3) 05/31/18 03:41 Phosphorus 4.2 mg/dL (2.7-4.5) 05/29/18 07:53 Magnesium 2.2 mg/dL (1.6-2.6) 05/29/18 07:53 Urine Creatinine 55 mg/dL 05/31/18 06:30 Urine Total Protein 17 mg/dL (1-14) H 05/31/18 06:30 Consult Discharge Plan - Plan Referrals: Merissa Barroso CNP [Advanced Practice Nurse] - 06/09/18 2:00 pm Onesimo Ramsay CNP [Advanced Practice Nurse] - (Office will call the edd ent at home with follow up appointment)
[2018-06-01] MEDS: hydrALAZINE 25 MG TABLET PO SCH ×5 (00:10→23:30)
[2018-06-01] MEDS: Ipratropium/Albuterol Neb 3 ML IH SCH ×6 (03:57→23:26)
[2018-06-01] MEDS: *HR* Heparin 5,000 UNIT/ML VIAL SQ SCH ×3 (05:39→21:02)
[2018-06-01 05:46] LABS: Hematocrit 29.7 % (35.3-44.9); Immature Granulocytes % 0.4 % (0-4); Lymphocytes # 0.8 K/mcL (0.6-4.6); Lymphocytes % 8.2 %; Mean Corpuscular HGB Conc 33.7 g/dL (31.6-35.5); Mean Corpuscular Hemoglobin 31.2 pg (28.0-33.3); Mean Corpuscular Volume 92.5 fL (83.0-100.0); Mean Platelet Volume 10.2 fL (9.4-12.4); Monocytes # 0.2 K/mcL (0.0-1.3); Monocytes % 1.9 %; Neutrophils # 8.8 K/mcL (1.6-8.9); Platelet Count 295 K/mcL (140-400); Red Blood Count 3.21 M/mcL (3.82-4.97); Red Cell Distribution Width 15.5 % (11.5-14.5); Segmented Neutrophils % 89.5 %
[2018-06-01 06:10] LABS: Calcium 9.5 mg/dL (8.6-10.3); Potassium 4.3 mEq/L (3.5-5.1)
[2018-06-01 06:12] LABS: Creatinine,Urine 53 mg/dL
[2018-06-01] MEDS: MethylPREDNISolone 40 MG/ML VIAL IVP SCH (08:13)
[2018-06-01] MEDS: Albumin 25% 25gram/100mL 25 GM/100 ML IV.SOLN IVPB SCH (08:14)
[2018-06-01] MEDS: Aspirin 81 MG TAB.CHEW PO SCH (08:14)
[2018-06-01] MEDS: Isosorbide MONOnitrate (24 HR) 60 MG TAB.ER.24H PO SCH (08:14)
[2018-06-01] MEDS: Furosemide 40 MG/4 ML VIAL IVP SCH (08:14)
[2018-06-01] MEDS: NIFEdipine XL (24 HR) 60 MG TAB.ER.24 PO SCH (08:16)
[2018-06-01] MEDS: *HR* LORazepam 1 MG TABLET PO SCH ×2 (08:16→21:03)
[2018-06-01] MEDS: Insulin LISPRO 300 UNITS/3 ML VIAL SQ SCH ×4 (08:17→21:05)
[2018-06-01] MEDS: Nicotine 14 MG PATCH.TD24 TD SCH (08:37)
--- NOTE | 2018-06-01 11:35 | Internal Med Progress Note ---
Hospitalist Progress Note - Encounter Date of Encounter: 06/01/18 Time of Encounter: 09:00 - Subjective Interval History: Pt has less SOB. No cough, No fever. Tachypnea improved. Still anxious. - Exam Vitals: Temp Pulse Resp BP Pulse Ox 98.7 F 82 18 158/78 92 06/01/18 07:13 06/01/18 08:00 06/01/18 11:00 06/01/18 07:13 06/01/18 11:00 Exam: General: In no respiratory distress Head: atraumatic, normocephalic, Eye: normal appearance, PERRL, no scleral icterus, no conjunctival injection ENT: mucous membranes moist, normal external ear exam Neck: normal inspection, trachea midline, full ROM, positive for JVD Chest: Bibasal rales, No wheezing Cardiovascular: S1 and S2, RRR no murmurs or thrills appreciated Abdomen: Bowel sounds present normoactive x-4 quadrants. Abdomen is soft, nondistended. no Epigastric tenderness. No guarding or rebound. No organom egaly noted, musculoskeletal: Spontaneously moving all extremities. no edema, no calf tenderness . L AVF, palpable thrill Skin: warm, dry, intact. No rash Neuro: Alert and oriented x4. Sensation light touch intact. Cranial nerves 2- 12 is intact. Not aphasic, no focal deficit Psych: Patient's affect is normal - Assessment and Plan (1) Chronic kidney disease, stage IV (severe) Current Visit: Yes Status: Chronic Assessment and Plan: Status post fistula placement Not on dialysis currently Appreciated nephro consult. Cont lasix dose to 40mg iv daily. Fluctuate renal function but generally at her baseline. (2) Acute respiratory failure with hypoxia Current Visit: Yes Status: Acute Assessment and Plan: Presented with hypoxia due to pulm edema, from CHFrEF exacerbation Continue O2 supplement Wean as tolerated Consider 6 mins walk test prior to discharged Cont CHF exacerbation treatment. (3) Hypertensive urgency Current Visit: Yes Status: Resolved Assessment and Plan: resolved Off nicardipine drip Continue home CCB and BB, add po hydralazine. Pt has systolic CHF, ideally will benefit from ACEI/ARB, however pt has IRENE now, will hold and may add by PCP in the future. 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 Driscoll, requests appt at time of discharge TTE on 05/12 LVEF 45%. Mild global LV systolic dysfunction. Mild concentric left ventricular hypertrophy. Moderate left ventricular diastolic dysfunction. LV chamber size upper limits of normal. Normal right ventricular structure and function. Mild-moderate mitral regurgitation. No pulmonary hypertension. There is a trivial pericardial effusion present. (6) Acute bronchitis Current Visit: Yes Status: Acute Assessment and Plan: Wheezing improved. Sputum culture, legionella and Strep pneum test unremarkable D/C steroid Continue duonebs (7) DVT prophylaxis Current Visit: Yes Status: Acute Assessment and Plan: Heparin subcutaneous (8) Anxiety Current Visit: Yes Status: Acute Assessment and Plan: Continue home dose lorazepam and add PRN ativan IV DVT Prophylaxis: Heparin SC - Time Spent with Patient Total time spent is greater than 50% in coordination of care (as documented) at patient's floor/unit and/or counseling patient: 30 min 25 - 35 minutes Plan of Care Discussed with: patient Internal Medicine: Result - Labs CBC & Chem 7: 06/01/18 05:25 06/01/18 05:25 Labs: Short CBC 06/01/18 Range/Units 05:25 WBC 9.8 (4.3-11.1) K/mcL Hgb 10.0 L (11.5-15.4) g/dL Hct 29.7 L (35.3-44.9) % Plt Count 295 (140-400) K/mcL Neutrophils # 8.8 (1.6-8.9) K/mcL BMP 06/01/18 05:25 Sodium 136 Potassium 4.3 Chloride 104 Carbon Dioxide 19 L BUN 56 H Creatinine 2.27 H Glucose 145 H Calcium 9.5 - ABG Interpretation ABG results: ABG ABG pH 7.50 pH Units (7.32-7.45) H 05/29/18 12:03 ABG pCO2 34 mmHg (35-45) L 05/29/18 12:03 ABG pO2 97 mmHg (85-104) 05/29/18 12:03 ABG O2 Saturation 98 % (95-98) 05/29/18 12:03 PT/INR, D-dimer PT 13.6 Seconds (9.4-12.1) H 05/29/18 07:53 Consult Discharge Plan - Plan Referrals: Merissa Barroso CNP [Advanced Practice Nurse] - 06/09/18 2:00 pm Onesimo Ramsay CNP [Advanced Practice Nurse] - (Office will call the patient at home with follow up appointment) (6) Acute bronchitis Qualifiers: Bronchitis organism: unspecified organism Qualified Code(s): J20.9 - Acute bronchitis, unspecified
--- NOTE | 2018-06-01 13:33 | Nephrology Progress Note ---
Date of Encounter: 06/01/18 Time of Encounter: 13:31 - Assessment and Plan (1) Acute kidney injury Current Visit: Yes Status: Acute Chronic kidney disease stage IV. She follows with dress cutter Dr. Willingham. She is a left AV fistula that was placed 2 years ago. -Etiology likely prerenal in setting of decreased oral intake and Lasix -Creatinine 2.27 (1.85) worsened today from yesterday, baseline creatinine 1.7- 2.1 -GFR 21 (baseline 23 to 29) -I&O: 1210/500 poor urine output -urinalysis: positive leukocyte esterase, WBC 5-15. Mild proteinuria. Plan: -worsened creatinine and GFR today from yesterday. Continue Lasix cautiously. She does not appear volume overloaded except for rales on lung examination. Will reevaluate tomorrow. -Continue albumin 25% 30min before lasix is given -Continue to monitor I&O -renal dose medications, avoid nephrotoxic agents (2) Chronic kidney disease, stage IV (severe) Current Visit: Yes Status: Chronic Chronic kidney disease stage IV. She follows with dress cutter Dr. Willingham. She is a left AV fistula that was placed 2 years ago. -baseline creatinine 1.7-2.1 -baseline GFR 23 to 29 (3) Hypokalemia Current Visit: Yes Status: Acute Resolved hypokalemia. -Continue to monitor and supplement as needed (4) Hypertensive urgency Current Visit: Yes Status: Resolved Was hypertensive at admission, however blood pressure is now stable -continue current regimen and may increase hydralazine as needed (5) Acute respiratory failure with hypoxia Current Visit: Yes Status: Acute Patient presented with acute respiratory failure with hypoxia. Etiology is multifactorial including bronchitis and CHF. However there are no signs of volume overload except for rales on lung examination. Chest x-ray demonstrating persistent but improving interstitial edema. Stable small right pleural effusion. -May consider chest CT since his x-ray demonstrating persistent interstitial edema. -Continue diuresis cautiously. Continue albumin along with the Lasix. Continue fluid restriction (6) Anemia Current Visit: Yes Status: Acute Anemia. Hemoglobin 10, at admission was 12.5 -no obvious active bleeding. Patient denies melena, hemmatochezia -Will defer management to primary team Qualifiers: Anemia type: unspecified type Qualified Code(s): D64.9 - Anemia, unspecified Subjective Principal diagnosis: CHF Interval history: Patient was alert and oriented times 3. She reported improvement and shortness of breath. She was on room air. She denied difficulty urinating, dysuria, hematuria, fever, chills. She has no complaints at this time. Objective - Vital Signs Vital signs: Vital Signs Temp Pulse Resp BP Pulse Ox 06/01/18 11:39 98.6 F 86 18 150/81 90 06/01/18 11:00 18 92 06/01/18 10:22 82 18 92 06/01/18 08:00 82 18 06/01/18 07:58 20 93 06/01/18 07:13 98.7 F 87 20 158/78 93 06/01/18 03:57 15 92 06/01/18 03:15 98.7 F 80 16 167/78 98 05/31/18 23:53 98.8 F 69 27 146/74 97 05/31/18 23:32 24 96 05/31/18 20:13 30 161/84 9 05/31/18 19:31 97.6 F 83 31 161/84 97 05/31/18 16:41 32 186/93 98 05/31/18 16:00 97.4 F L 99 32 186/93 98 05/31/18 15:57 26 95 Intake and Output 05/31/18 06/01/18 06/01/18 23:59 07:59 15:59 Intake Total 120 / 120 360 / 360 Output Total 300 / 300 600 / 600 150 / 150 Balance -180 / -180 -600 / -600 210 / 210 Intake: Oral 120 / 120 360 / 360 Output: Urine 300 / 300 600 / 600 Catheter 150 / 150 Other: Meal Dinner Breakfast Percent of Meal Consumed 0% 10% Weight 53.9 kg Blood Glucose* 110 156 154 Patient Weight 06/01/18 23:59 Weight 53.9 kg - General Appearance Exam: Gen.: Vitals noted. No acute distress. AAOx3 HEENT: oropharynx clear, Normocephalic, atraumatic Neck: Supple. No adenopathy. Cardiac: RRR, no murmur, +S1/S2, no bilateral lower extremity edema Pulmonary: bilaterally rales , no wheezes, or rhonchi, equal chest expansion Abdomen: soft, nontender, Bowel sounds noted, no guarding MSK: ROM intact, no joint swelling noted Neuro: A&Ox3, moves all extremities, no focal deficits Psych: Appropriate mood and behavior - Lab 06/01/18 05:25 06/01/18 05:25 Most recent lab results ABG pH 7.50 pH Units (7.32-7.45) H 05/29/18 12:03 ABG pCO2 34 mmHg (35-45) L 05/29/18 12:03 ABG pO2 97 mmHg (85-104) 05/29/18 12:03 ABG HCO3 26 mEq/L (21-27) 05/29/18 12:03 ABG O2 Saturation 98 % (95-98) 05/29/18 12:03 Calcium 9.5 mg/dL (8.6-10.3) 06/01/18 05:25 Phosphorus 4.2 mg/dL (2.7-4.5) 05/29/18 07:53 Magnesium 2.2 mg/dL (1.6-2.6) 05/29/18 07:53 Urine Creatinine 53 mg/dL 06/01/18 05:45 Urine Total Protein 17 mg/dL (1-14) H 05/31/18 06:30 Consult Discharge Plan - Plan Referrals: Merissa Barroso CNP [Advanced Practice Nurse] - 06/09/18 2:00 pm Onesimo Ramsay CNP [Advanced Practice Nurse] - (Office will call the patient at home with follow up appointment)
[2018-06-01] MEDS: NIFEdipine XL (24 HR) 30 MG TAB.ER.24 PO SCH (18:59)
[2018-06-01] MEDS: Melatonin 3 MG TABLET PO SCH (21:03)
[2018-06-02] MEDS: Ipratropium/Albuterol Neb 3 ML IH SCH ×6 (03:00→23:11)
[2018-06-02 04:11] LABS: Basophils % 0.1 %; Hematocrit 32.1 % (35.3-44.9); Hemoglobin 10.3 g/dL (11.5-15.4); Immature Granulocytes % 0.6 % (0-4); Lymphocytes # 1.9 K/mcL (0.6-4.6); Lymphocytes % 16.3 %; Mean Corpuscular HGB Conc 32.1 g/dL (31.6-35.5); Mean Corpuscular Hemoglobin 29.7 pg (28.0-33.3); Mean Corpuscular Volume 92.5 fL (83.0-100.0); Mean Platelet Volume 10.5 fL (9.4-12.4); Monocytes # 0.8 K/mcL (0.0-1.3); Monocytes % 7.2 %; Neutrophils # 8.8 K/mcL (1.6-8.9); Platelet Count 314 K/mcL (140-400); Red Blood Count 3.47 M/mcL (3.82-4.97); Red Cell Distribution Width 15.7 % (11.5-14.5); Segmented Neutrophils % 75.8 %
[2018-06-02 04:31] LABS: Calcium 9.5 mg/dL (8.6-10.3); Potassium 3.8 mEq/L (3.5-5.1)
[2018-06-02] MEDS: hydrALAZINE 25 MG TABLET PO SCH ×3 (05:02→23:40)
[2018-06-02] MEDS: *HR* Heparin 5,000 UNIT/ML VIAL SQ SCH ×3 (05:02→20:31)
[2018-06-02] MEDS: Insulin LISPRO 300 UNITS/3 ML VIAL SQ SCH ×4 (08:06→20:31)
[2018-06-02] MEDS: Albumin 25% 25gram/100mL 25 GM/100 ML IV.SOLN IVPB SCH (08:28)
[2018-06-02 08:29] LABS: Estimated Average Glucose 140 mg/dl; Hemoglobin A1C 6.5 %
[2018-06-02] MEDS: Nicotine 14 MG PATCH.TD24 TD SCH (08:45)
[2018-06-02] MEDS: NIFEdipine XL (24 HR) 60 MG TAB.ER.24 PO SCH (08:45)
[2018-06-02] MEDS: Isosorbide MONOnitrate (24 HR) 60 MG TAB.ER.24H PO SCH (08:45)
[2018-06-02] MEDS: Aspirin 81 MG TAB.CHEW PO SCH (08:45)
[2018-06-02] MEDS: *HR* LORazepam 1 MG TABLET PO SCH ×2 (08:45→20:31)
[2018-06-02] MEDS: Furosemide 40 MG/4 ML VIAL IVP SCH (10:39)
--- NOTE | 2018-06-02 13:19 | Internal Med Progress Note ---
Hospitalist Progress Note - Encounter Date of Encounter: 06/02/18 Time of Encounter: 09:00 - Subjective Interval History: Pt has less SOB, off oxygen most of the time. No cough, No fever. Tachypnea improved. Still mild anxious but improved. - Exam Vitals: Temp Pulse Resp BP Pulse Ox 98.4 F 82 14 160/76 89 06/02/18 11:03 06/02/18 11:03 06/02/18 11:06 06/02/18 11:03 06/02/18 11:06 Exam: General: In no respiratory distress Head: atraumatic, normocephalic, Eye: normal appearance, PERRL, no scleral icterus, no conjunctival injection ENT: mucous membranes moist, normal external ear exam Neck: normal inspection, trachea midline, full ROM, positive for JVD Chest: Rt lung base rales, No wheezing Cardiovascular: S1 and S2, RRR no murmurs or thrills appreciated Abdomen: Bowel sounds present normoactive x-4 quadrants. Abdomen is soft, nondistended. no Epigastric tenderness. No guarding or rebound. No organomegaly noted, musculoskeletal: Spontaneously moving all extremities. no edema, no calf tenderness . L AVF, palpable thrill Skin: warm, dry, intact. No rash Neuro: Alert and oriented x4. Sensation light touch intact. Cranial nerves 2- 12 is intact. Not aphasic, no focal deficit Psych: Patient's affect is normal - Assessment and Plan (1) Chronic kidney disease, stage IV (severe) Current Visit: Yes Status: Chronic Assessment and Plan: Status post fistula placement Not on dialysis currently Appreciated nephro consult. Cont lasix dose at 40mg iv daily. Fluctuate renal function but generally at her baseline. (2) Acute respiratory failure with hypoxia Current Visit: Yes Status: Acute Assessment and Plan: Presented with hypoxia due to pulm edema, from CHFrEF exacerbation/HTN emergency Continue O2 supplement Wean as tolerated Consider 6 mins walk test prior to discharged Cont CHF exacerbation treatment. Control BP (3) Hypertensive urgency Current Visit: Yes Status: Resolved Assessment and Plan: resolved but BP is still high. Off nicardipine drip Continue home CCB and BB, increase coreg dose to 12.5mg po bid, add po hydralazine. Pt has systolic CHF, ideally will benefit from ACEI/ARB, however pt has IRENE now, will hold and may add by PCP in the future. Closely monitor BP (4) Acute pulmonary edema Current Visit: Yes Status: Acute Assessment and Plan: Sudden onset of shortness of breath, uncontrolled blood pressure 200/100 Rpt CXR from today 11/5 a.m shows persistent but improved pulm edema Decrease lasix to 40mg IV daily due to renal function and adequate urinary output Continue I/Os monitoring Continue to monitor Chem Pt has clinically improved. State has good urine output. 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 Driscoll, requests appt at time of discharge TTE on 05/12 LVEF 45%. Mild global LV systolic dysfunction. Mild concentric left ventricular hypertrophy. Moderate left ventricular diastolic dysfunction. LV chamber size upper limits of normal. Normal right ventricular structure and function. Mild-moderate mitral regurgitation. No pulmonary hypertension. There is a trivial pericardial effusion present. (6) Acute bronchitis Current Visit: Yes Status: Acute Assessment and Plan: Wheezing resolved. Sputum culture, legionella and Strep pneum test unremarkable D/C steroid Continue duonebs Respiratory viral test negative. (7) DVT prophylaxis Current Visit: Yes Status: Acute Assessment and Plan: Heparin subcutaneous (8) Anxiety Current Visit: Yes Status: Acute Assessment and Plan: Continue home dose lorazepam and add PRN ativan IV DVT Prophylaxis: Heparin SC - Time Spent with Patient Total time spent is greater than 50% in coordination of care (as documented) at patient's floor/unit and/or counseling patient: 25 - 35 minutes Plan of Care Discussed with: patient Internal Medicine: Result - Labs CBC & Chem 7: 06/02/18 03:39 06/02/18 03:39 Labs: Short CBC 06/02/18 Range/Units 03:39 WBC 11.6 H (4.3-11.1) K/mcL Hgb 10.3 L (11.5-15.4) g/dL Hct 32.1 L (35.3-44.9) % Plt Count 314 (140-400) K/mcL Neutrophils # 8.8 (1.6-8.9) K/mcL BMP 06/02/18 03:39 Sodium 140 Potassium 3.8 Chloride 107 Carbon Dioxide 22 L BUN 61 H Creatinine 2.23 H Glucose 100 Calcium 9.5 - ABG Interpretation ABG results: ABG ABG pH 7.50 pH Units (7.32-7.45) H 05/29/18 12:03 ABG pCO2 34 mmHg (35-45) L 05/29/18 12:03 ABG pO2 97 mmHg (85-104) 05/29/18 12:03 ABG O2 Saturation 98 % (95-98) 05/29/18 12:03 PT/INR, D-dimer PT 13.6 Seconds (9.4-12.1) H 05/29/18 07:53 Consult Discharge Plan - Plan Referrals: Merissa Barroso CNP [Advanced Practice Nurse] - 06/09/18 2:00 pm Onesimo Ramsay CNP [Advanced Practice Nurse] - (Office will call the patient at home with follow up appointment) (6) Acute bronchitis Qualifiers: Bronchitis organism: unspecified organism Qualified Code(s): J20.9 - Acute bronchitis, unspecified
--- NOTE | 2018-06-02 13:24 | Nephrology Progress Note ---
Date of Encounter: 06/02/18 Time of Encounter: 13:21 - Assessment and Plan (1) Acute kidney injury Current Visit: Yes Status: Acute Chronic kidney disease stage IV. She follows with mounter hand Dr. Willingham. She is a left AV fistula that was placed 2 years ago. -Etiology likely prerenal in setting of decreased oral intake and Lasix -Creatinine 2.23 (1.85) worsened today from yesterday, baseline creatinine 1.7- 2.1 -GFR 22 (baseline 23 to 29) -I&O: 900/1600 good urine output -urinalysis: positive leukocyte esterase, WBC 5-15. Mild proteinuria. Plan: -patient has improved creatinine, GFR, and urine output. Continue current management. -Continue albumin 25% 30min before lasix is given -Continue to monitor I&O -renal dose medications, avoid nephrotoxic agents (2) Chronic kidney disease, stage IV (severe) Current Visit: Yes Status: Chronic Chronic kidney disease stage IV. She follows with mounter hand Dr. Willingham. She is a left AV fistula that was placed 2 years ago. -baseline creatinine 1.7-2.1 -baseline GFR 23 to 29 (3) Hypokalemia Current Visit: Yes Status: Acute Resolved hypokalemia. -Continue to monitor and supplement as needed (4) Hypertensive urgency Current Visit: Yes Status: Resolved Was hypertensive at admission, however blood pressure is now stable -continue current regimen and may increase hydralazine as needed (5) Acute respiratory failure with hypoxia Current Visit: Yes Status: Acute Patient presented with acute respiratory failure with hypoxia. Etiology is multifactorial including bronchitis and CHF. However there are no signs of volume overload except for rales on lung examination. Chest x-ray demonstrating persistent but improving interstitial edema. Stable small right pleural effusion. -May consider chest CT since his x-ray demonstrating persistent interstitial edema. -Continue diuresis cautiously. Continue albumin along with the Lasix. Continue fluid restriction (6) Anemia Current Visit: Yes Status: Acute Anemia. Hemoglobin 10, at admission was 12.5 -no obvious active bleeding. Patient denies melena, hemmatochezia -Will defer management to primary team Qualifiers: Qualified Code(s): D64.9 - Anemia, unspecified Subjective Principal diagnosis: CHF Interval history: Patient was alert and oriented times 3. She reported improvement and shortness of breath. She was on room air. She denied difficulty urinating, dysuria, hematuria, fever, chills. She has no complaints at this time. Objective - Vital Signs Vital signs: Vital Signs Temp Pulse Resp BP Pulse Ox 06/02/18 11:06 14 89 06/02/18 11:03 98.4 F 82 18 160/76 91 06/02/18 09:00 82 18 93 06/02/18 07:48 98.3 F 92 20 184/75 93 06/02/18 07:17 16 94 06/02/18 03:42 98.4 F 85 18 156/73 94 06/02/18 03:00 16 95 06/01/18 23:26 16 96 06/01/18 23:17 97.4 F L 91 18 162/72 92 06/01/18 21:10 87 94 06/01/18 20:13 16 06/01/18 19:18 98.6 F 95 16 167/78 91 06/01/18 18:00 88 18 92 06/01/18 16:33 98.6 F 92 18 153/76 90 06/01/18 15:35 90 18 152/78 93 06/01/18 15:16 16 152/78 91 06/01/18 13:44 91 18 167/75 94 Intake and Output 06/01/18 06/02/18 06/02/18 23:59 07:59 15:59 Intake Total 200 / 200 240 / 240 560 / 560 Output Total 350 / 350 900 / 900 Balance -150 / -150 -660 / -660 560 / 560 Intake: IV Fluids 100 / 100 Flexbumin 25 gm In 100 ml @ 60 100 / 100 mls/hr IVPB DAILY [facility] Rx#: [id number] Oral 200 / 200 240 / 240 460 / 460 Output: Urine 350 / 350 900 / 900 Other: Meal Lunch Percent of Meal Consumed 100% Weight 54.3 kg Blood Glucose* 279 100 112 Patient Weight 06/02/18 23:59 Weight 54.3 kg - General Appearance Exam: Gen.: Vitals noted. No acute distress. AAOx3 HEENT: oropharynx clear, Normocephalic, atraumatic Neck: Supple. No adenopathy. Cardiac: RRR, no murmur, +S1/S2, no bilateral lower extremity edema Pulmonary: improved and minimally present bilaterally rales , no wheezes, or rhonchi, equal chest expansion Abdomen: soft, nontender, Bowel sounds noted, no guarding MSK: ROM intact, no joint swelling noted Neuro: A&Ox3, moves all extremities, no focal deficits Psych: Appropriate mood and behavior - Lab 06/02/18 03:39 06/02/18 03:39 Most recent lab results ABG pH 7.50 pH Units (7.32-7.45) H 05/29/18 12:03 ABG pCO2 34 mmHg (35-45) L 05/29/18 12:03 ABG pO2 97 mmHg (85-104) 05/29/18 12:03 ABG HCO3 26 mEq/L (21-27) 05/29/18 12:03 ABG O2 Saturation 98 % (95-98) 05/29/18 12:03 Calcium 9.5 mg/dL (8.6-10.3) 06/02/18 03:39 Phosphorus 4.2 mg/dL (2.7-4.5) 05/29/18 07:53 Magnesium 2.2 mg/dL (1.6-2.6) 05/29/18 07:53 Urine Creatinine 53 mg/dL 06/01/18 05:45 Urine Total Protein 17 mg/dL (1-14) H 05/31/18 06:30 Consult Discharge Plan - Plan Referrals: Merissa Barroso CNP [Advanced Practice Nurse] - 06/09/18 2:00 pm Onesimo Ramsay CNP [Advanced Practice Nurse] - (Office will call the patient at home with follow up appointment)
[2018-06-02] MEDS ORDERED: Albuterol 2.5 MG/3 ML NEBULIZER IH PRN (15:04)
[2018-06-02] MEDS: NIFEdipine XL (24 HR) 30 MG TAB.ER.24 PO SCH (18:53)
[2018-06-02] MEDS: Melatonin 3 MG TABLET PO SCH (20:31)
[2018-06-03] MEDS: Ipratropium/Albuterol Neb 3 ML IH SCH ×3 (03:27→11:04)
[2018-06-03 04:10] LABS: Basophils % 0.1 %; Eosinophils # 0.1 K/mcL (0.0-0.6); Eosinophils % 0.9 %; Hematocrit 32.3 % (35.3-44.9); Hemoglobin 10.7 g/dL (11.5-15.4); Immature Granulocytes % 0.6 % (0-4); Lymphocytes # 2.7 K/mcL (0.6-4.6); Lymphocytes % 24.4 %; Mean Corpuscular HGB Conc 33.1 g/dL (31.6-35.5); Mean Corpuscular Hemoglobin 30.6 pg (28.0-33.3); Mean Corpuscular Volume 92.3 fL (83.0-100.0); Mean Platelet Volume 10.5 fL (9.4-12.4); Monocytes # 0.7 K/mcL (0.0-1.3); Monocytes % 6.8 %; Neutrophils # 7.3 K/mcL (1.6-8.9); Platelet Count 291 K/mcL (140-400); Red Cell Distribution Width 15.5 % (11.5-14.5); Segmented Neutrophils % 67.2 %
[2018-06-03 04:29] LABS: Calcium 9.1 mg/dL (8.6-10.3); Potassium 3.7 mEq/L (3.5-5.1)
[2018-06-03] MEDS: *HR* Heparin 5,000 UNIT/ML VIAL SQ SCH (05:43)
[2018-06-03] MEDS: Isosorbide MONOnitrate (24 HR) 60 MG TAB.ER.24H PO SCH (08:17)
[2018-06-03] MEDS: Aspirin 81 MG TAB.CHEW PO SCH (08:17)
[2018-06-03] MEDS: *HR* LORazepam 1 MG TABLET PO SCH (08:17)
[2018-06-03] MEDS: NIFEdipine XL (24 HR) 60 MG TAB.ER.24 PO SCH (08:17)
[2018-06-03] MEDS: hydrALAZINE 25 MG TABLET PO SCH (08:17)
[2018-06-03] MEDS: Nicotine 14 MG PATCH.TD24 TD SCH (08:18)
[2018-06-03] MEDS: Albumin 25% 25gram/100mL 25 GM/100 ML IV.SOLN IVPB SCH (08:18)
[2018-06-03] MEDS: Insulin LISPRO 300 UNITS/3 ML VIAL SQ SCH ×2 (08:39→11:16)
[2018-06-03] MEDS: Furosemide 40 MG/4 ML VIAL IVP SCH (10:03)
[2018-06-03 11:04] VITALS: BP 150/66
--- NOTE | 2018-06-03 12:10 | Discharge Summary ---
- NOTES TO OUTPATIENT PROVIDER Notes to Outpatient Provider: 1. Pt has HTN urgency and difficult controlled BP, new meds hydralazine 50mg po q8h added and Coreg dose was increased to 12.5mg bid. 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 Schroeder is a 68 year old female admitted for acute pulmonary edema, hypertensive urgency, acute CHF. Patient was treated with nicardipine drip, IV Lasix, and the BiPAP. after treatment, her short of breath has improved. Respiratory viral panel negative. Her BP is difficult to control, medication adjusted. Patient will discharge home today. She had 6 minutes walking oxygen qualification test but not qualified for home oxygen. I have seen and examined the patient today. Patient is awake alert, oriented 3, no shortness of breath, lungs are clear, vitals are stable. BP get down. Will discharge patient home, continue low-salt diet and fluid restriction, continue by mouth Lasix, continue BP medications and closely monitor BP. Follow-up with PCP in one week. Discharge discussed with: patient Time spent discussing smoking cessation with patient: 3 to 10 minutes - Time Spent with Patient Total time spent providing and/or coordinating discharge services: 30 minutes Less than 30 minutes - Discharge Medications Prescriptions: Albuterol Neb [Proventil Neb] 2.5 mg IH [id number] PRN #1 bottle PRN Reason: Shortness Of Breath/Wheezing hydrALAZINE [HydrALAZINE] 50 mg PO Q8HR 30 Days #180 tablet Carvedilol [Coreg] 25 mg PO BIDWM 30 Days #60 tablet Furosemide [Lasix] 40 mg PO DAILY 30 Days #60 tablet Nicotine Patch [Nicoderm] 14 mg TD DAILY 14 Days #14 patch.td24 Home Medications: Aspirin 81 mg PO DAILY 05/10/17 [History] Isosorbide MONOnitrate (24 HR) [Imdur] 60 mg PO DAILY 05/10/17 [History] LORazepam [Ativan] 1 mg PO BID 05/10/17 [History] NIFEdipine [Adalat cc] 30 mg PO QPM 05/10/17 [History] NIFEdipine [Adalat cc] 60 mg PO QAM 05/10/17 [History] Levothyroxine Sodium [Levo-T] 50 mcg PO DAILY 05/29/18 [History] Albuterol Neb [Proventil Neb] 2.5 mg IH [id number] PRN #1 bottle 06/03/18 [Rx] Carvedilol [Coreg] 25 mg PO BIDWM 30 Days #60 tablet 06/03/18 [Rx] Furosemide [Lasix] 40 mg PO DAILY 30 Days #60 tablet 06/03/18 [Rx] GuaiFENesin/Dextromethorphan [Robitussin/DM] 10 ml PO Q6HR #200 ml 06/03/18 [Rx] Nicotine Patch [Nicoderm] 14 mg TD DAILY 14 Days #14 patch.td24 06/03/18 [Rx] hydrALAZINE [HydrALAZINE] 50 mg PO Q8HR 30 Days #180 tablet 06/03/18 [Rx] Allergies/Adverse Reactions: Allergy/AdvReac Type Severity Reaction Status Date / Time Amoxicillin Allergy Difficulty Verified 05/29/18 02:22 Swallowing doxycycline Allergy Anaphylaxis Verified 05/29/18 02:22 prednisone Allergy Anaphylaxis Verified 05/29/18 02:22 Sulfa (Sulfonamide Allergy Difficulty Verified 05/29/18 02:22 Antibiotics) Swallowing Date of admission: 05/30/18 09:27 Primary care physician: Nii Scott DO Consults: 05/29/18 07:34 Consult to Nurse Navigator [CONS] Routine Comment: 05/29/18 07:42 Consult to Cardiology [CONS] Routine Comment: Consulting Provider: Cardiology [place] Reason for Consult: acute CHF exacerbation with pulmonary edema and hTN cristiane gency Call Completed: No 05/30/18 11:18 Consult to Nephrology [CONS] Routine Consulting Provider: Kidney Paula/SARATH/KASANDRA/LATIA Reason for Consult: CKD stage 4, diuresis Call Completed: Yes Discharging clinician: Sanchez Lyon Anticipated date of discharge: 06/03/18 - Constitutional Vitals: Temp Pulse Resp BP Pulse Ox 98.8 F 74 16 150/66 9 06/03/18 11:02 06/03/18 11:02 06/03/18 11:04 06/03/18 11:02 06/03/18 11:04 General appearance: Present: A&O X 3, no acute distress, answers questions appropriately Exam: General: In no respiratory distress Head: atraumatic, normocephalic, Eye: normal appearance, PERRL, no scleral icterus, no conjunctival injection ENT: mucous membranes moist, normal external ear exam Neck: normal inspection, trachea midline, full ROM, positive for JVD Chest: CTA b/l Cardiovascular: S1 and S2, RRR no murmurs or thrills appreciated Abdomen: Bowel sounds present normoactive x-4 quadrants. Abdomen is soft, nondistended. no Epigastric tenderness. No guarding or rebound. No organomegaly noted, musculoskeletal: Spontaneously moving all extremities. no edema, no calf tenderness . L AVF, palpable thrill Skin: warm, dry, intact. No rash Neuro: Alert and oriented x4. Sensation light touch intact. Cranial nerves 2- 12 is intact. Not aphasic, no focal deficit Psych: Patient's affect is normal - Patient Status Disposition: Home, Self-Care Condition: Good Functional capacity at discharge: independent ambulation Overall status at discharge: patient is back to baseline - Discharge Instructions Follow Up With: Merissa Barroso CNP [Advanced Practice Nurse] - 06/09/18 2:00 pm Onesimo Ramsay CNP [Advanced Practice Nurse] - (Office will call the patient at home with follow up appointment) - Diet and Activity Activity: increase activity as tolerated Diet: low fat, low cholesterol, low salt diet
== END 2018-06-03 13:40 | disposition home or self-care (01) | DRG 291 ==
LOC: 2NNU → SUATTDRO 06:40
PROVIDERS: ADMIT Family Medicine; ATTEND Internal Medicine

== ENCOUNTER 2021-01-26 08:33 | Observation (INO) ==
[2021-01-26] MEDS ORDERED: Ondansetron 4 MG/2 ML VIAL IVP PRN (11:47)
[2021-01-26] MEDS ORDERED: Naloxone 0.4 MG/ML INJ IVP PRN (11:47)
[2021-01-26] MEDS ORDERED: MethylPREDNISolone 40 MG/ML VIAL IVP SCH (11:52)
[2021-01-26] MEDS ORDERED: Aspirin 325 MG TABLET PO ONE (11:54)
[2021-01-26] MEDS ORDERED: Azithromycin 500 MG in 0.9 % Sodium Chloride 250 ML IVPB SCH (12:00)
[2021-01-26] MEDS ORDERED: Doxycycline 100 MG in 0.9 % Sodium Chloride Mini Bag 100 ML IVPB SCH (12:13)
[2021-01-26 12:53] LABS: VBG HCO3 30 mEq/L (21-27); VBG PCO2 55 mmHg (41-51); VBG PH 7.34 pH Units (7.32-7.42); VBG PO2 47 mmHg (25-50)
[2021-01-26 13:03] LABS: Calcium 9.4 mg/dL (8.6-10.3); Potassium 4.6 mEq/L (3.5-5.1)
[2021-01-26] MEDS: *HR* Heparin 5,000 UNIT/ML VIAL SQ SCH ×2 (13:48→20:58)
[2021-01-26] MEDS: *HR* LORazepam 1 MG TABLET PO PRN (16:05)
[2021-01-26] MEDS: Acetaminophen 325 MG TABLET PO PRN (16:06)
[2021-01-26] MEDS: Ipratropium/Albuterol Neb 3 ML IH SCH ×4 (16:08→23:37)
[2021-01-26] MEDS: lisinopriL 5 MG TABLET PO SCH (17:39)
[2021-01-26] MEDS: carvediloL 6.25 MG TABLET PO SCH (17:40)
[2021-01-27] MEDS ORDERED: Melatonin 3 MG TABLET PO PRN (00:58)
[2021-01-27] MEDS: *HR* LORazepam 1 MG TABLET PO PRN ×2 (01:18→13:38)
[2021-01-27 02:30] LABS: Hematocrit 24.8 % (35.3-44.9); Hemoglobin 7.5 g/dL (11.5-15.4); Mean Corpuscular HGB Conc 30.2 g/dL (31.6-35.5); Mean Corpuscular Hemoglobin 33.6 pg (28.0-33.3); Mean Corpuscular Volume 111.2 fL (83.0-100.0); Platelet Count 168 K/mcL (140-400); Red Blood Count 2.23 M/mcL (3.82-4.97); Red Cell Distribution Width 14.6 % (11.5-14.5); White Blood Count 8.1 K/mcL (4.3-11.1)
[2021-01-27 02:44] LABS: Potassium 4.7 mEq/L (3.5-5.1)
[2021-01-27] MEDS: Ipratropium/Albuterol Neb 3 ML IH SCH ×4 (04:03→16:01)
[2021-01-27] MEDS ORDERED: *HR* Heparin 10,000 UNIT/10 ML VIAL IV PRN ×2 (08:07)
[2021-01-27] MEDS ORDERED: 0.9 % Sodium Chloride 250 ML IVC PRN ×2 (08:07)
[2021-01-27] MEDS ORDERED: 0.9 % Sodium Chloride 1,000 ML PRIME SCH (08:15)
[2021-01-27] MEDS: *HR* Heparin 5,000 UNIT/ML VIAL SQ SCH ×2 (08:31→14:46)
[2021-01-27 08:51] LABS: Hematocrit 26.6 % (35.3-44.9)
[2021-01-27] MEDS ORDERED: Aspirin 81 MG TAB.CHEW PO SCH (09:00)
[2021-01-27] MEDS ORDERED: Nicotine 14 MG PATCH.TD24 TD SCH (09:00)
[2021-01-27 09:43] LABS: Hepatitis B Surface Antibody < 3.10 mIU/mL
[2021-01-27 09:54] LABS: Hepatitis B Surface Antigen Nonreactive (Nonreactive)
[2021-01-27] MEDS: Acetaminophen 325 MG TABLET PO PRN (12:22)
[2021-01-27] MEDS: carvediloL 6.25 MG TABLET PO SCH ×2 (13:30→13:44)
[2021-01-27] MEDS: lisinopriL 5 MG TABLET PO SCH (13:36)
[2021-01-27 14:46] VITALS: BP 176/80
== END 2021-01-27 16:06 | disposition home or self-care (01) ==
LOC: 2NNU
PROVIDERS: ADMIT Internal Medicine; ATTEND Internal Medicine

== ENCOUNTER 2021-06-02 00:42 | Inpatient (IN) ==
[2021-06-02] MEDS ORDERED: Acetaminophen 325 MG TABLET PO PRN (04:23)
[2021-06-02] MEDS ORDERED: Ondansetron 4 MG/2 ML VIAL IVP PRN (04:23)
[2021-06-02] MEDS ORDERED: Naloxone 0.4 MG/ML INJ IVP PRN (04:23)
[2021-06-02] MEDS ORDERED: Ipratropium/Albuterol Neb 3 ML IH PRN (04:28)
[2021-06-02] MEDS ORDERED: Furosemide 40 MG/4 ML VIAL IVP ONE (04:30)
[2021-06-02 05:44] LABS: Basophils % 0.3 %; Eosinophils % 0.3 %; Hematocrit 34.6 % (35.3-44.9); Hemoglobin 10.4 g/dL (11.5-15.4); Immature Granulocytes % 0.3 % (0-4); Lymphocytes # 0.5 K/mcL (0.6-4.6); Lymphocytes % 7.5 %; Mean Corpuscular HGB Conc 30.1 g/dL (31.6-35.5); Mean Corpuscular Hemoglobin 33.4 pg (28.0-33.3); Mean Corpuscular Volume 111.3 fL (83.0-100.0); Monocytes # 0.1 K/mcL (0.0-1.3); Neutrophils # 6.4 K/mcL (1.6-8.9); Platelet Count 164 K/mcL (140-400); Red Blood Count 3.11 M/mcL (3.82-4.97); Red Cell Distribution Width 16.2 % (11.5-14.5); Segmented Neutrophils % 90.6 %; White Blood Count 7.1 K/mcL (4.3-11.1)
[2021-06-02 05:59] LABS: INR 1.1
[2021-06-02] MEDS ORDERED: levoFLOXacin 750 MG/150 ML 750 MG/150 ML BAG IVPB SCH (06:00)
[2021-06-02] MEDS ORDERED: methylPREDNISolone 125 MG/2 ML VIAL IVP SCH (06:00)
[2021-06-02 06:08] LABS: Calcium 10.3 mg/dL (8.6-10.3); Magnesium 2.5 mg/dL (1.6-2.6); Troponin I 0.2 ng/mL (< 0.04)
[2021-06-02] MEDS ORDERED: *HR* Heparin 5,000 UNIT/ML VIAL IVP PRN ×2 (06:18)
[2021-06-02] MEDS ORDERED: *HR* Heparin 5,000 UNIT/ML VIAL IVP ONE (06:18)
[2021-06-02 06:21] LABS: Platelet Estimate Normal (Normal)
[2021-06-02] MEDS ORDERED: Heparin 25,000UNIT/250ML 1/2NS 25,000 UNIT/250 ML IV.SOLN IVC SCH (06:30)
[2021-06-02] MEDS ORDERED: Perflutren Lipid Microsphere 1.3 ML in 0.9 % Sodium Chloride 8.7 ML IVP PRN (06:30)
[2021-06-02 06:54] LABS: Adenovirus Not Detected (Not Detect); Bordetella Pertussis Not Detected (Not Detect); Chlamydophila pneumoniae Not Detected (Not Detect); Coronavirus 229E Not Detected (Not Detect); Coronavirus HKU1 Not Detected (Not Detect); Coronavirus NL63 Not Detected (Not Detect); Coronavirus OC43 Not Detected (Not Detect); Human Metapneumovirus Not Detected (Not Detect); Human Rhinovirus/Enterovirus Not Detected (Not Detect); Influenza A Subtype 2009 H1 Not Detected (Not Detect); Influenza B Not Detected (Not Detect); Mycoplasma pneumoniae Not Detected (Not Detect); Parainfluenza Virus 1 Not Detected (Not Detect); Parainfluenza Virus 2 Not Detected (Not Detect); Parainfluenza Virus 3 Not Detected (Not Detect); Parainfluenza Virus 4 Not Detected (Not Detect); Respiratory Syncytial Virus Not Detected (Not Detect); SARS-CoV-2 Not Detected (Not Detect)
[2021-06-02] MEDS ORDERED: D5% in Water 1,000 ML IVC PRN (07:18)
[2021-06-02] MEDS ORDERED: Dextrose Gel 15 GM/37.5 ML TUBE PO PRN ×2 (07:18)
[2021-06-02] MEDS ORDERED: *HR* Dextrose 50 % in Water (Syg) 50 ML SYRINGE IVP PRN (07:18)
[2021-06-02] MEDS: Aspirin 81 MG TAB.CHEW PO SCH (08:06)
[2021-06-02] MEDS: carvediloL 6.25 MG TABLET PO SCH ×2 (08:07→17:18)
[2021-06-02] MEDS ORDERED: *HR* Enoxaparin 30 MG/0.3 ML SYRINGE SQ SCH (09:00)
[2021-06-02] MEDS ORDERED: 0.9 % Sodium Chloride 250 ML IVC PRN (09:18)
[2021-06-02] MEDS ORDERED: 0.9 % Sodium Chloride 1,000 ML PRIME SCH (09:30)
[2021-06-02] MEDS: Nicotine 14 MG PATCH.TD24 TD SCH (09:57)
[2021-06-02] MEDS ORDERED: amLODIPine 5 MG TABLET PO ONE (11:18)
[2021-06-02 12:03] LABS: Thyroid Stimulating Hormone 5.891 mcIU/mL (0.340-5.600)
[2021-06-02] MEDS: Insulin LISPRO 300 UNITS/3 ML VIAL SUBQ SCH ×2 (12:52→17:19)
[2021-06-02 12:55] LABS: Hepatitis B Surface Antigen Nonreactive (Nonreactive)
[2021-06-02] MEDS: *HR* LORazepam 1 MG TABLET PO PRN (14:27)
[2021-06-02] MEDS: *HR* Heparin 5,000 UNIT/ML VIAL SQ SCH ×2 (14:27→20:27)
[2021-06-02 15:28] LABS: Troponin I 0.26 ng/mL (< 0.04)
[2021-06-02 15:29] LABS: Potassium 3.8 mEq/L (3.5-5.1)
[2021-06-02 16:24] LABS: Hepatitis B Surface Antibody 10.05 mIU/mL
[2021-06-02] MEDS ORDERED: *HR* Labetalol 20 MG/4 ML SYRINGE IVP PRN (17:38)
[2021-06-03] MEDS ORDERED: Melatonin 3 MG TABLET PO PRN (01:02)
[2021-06-03] MEDS: Insulin LISPRO 300 UNITS/3 ML VIAL SUBQ SCH ×3 (02:06→12:02)
[2021-06-03 05:14] LABS: Phosphorous 6.2 mg/dL (2.7-4.5)
[2021-06-03] MEDS: *HR* Heparin 5,000 UNIT/ML VIAL SQ SCH (05:53)
[2021-06-03] MEDS: Aspirin 81 MG TAB.CHEW PO SCH (07:58)
[2021-06-03] MEDS: Nicotine 14 MG PATCH.TD24 TD SCH (07:58)
[2021-06-03] MEDS: *HR* LORazepam 1 MG TABLET PO PRN (07:59)
[2021-06-03] MEDS: Calcium Acetate 667 MG CAPSULE PO SCH ×2 (07:59→12:03)
[2021-06-03] MEDS: carvediloL 6.25 MG TABLET PO SCH (07:59)
[2021-06-03] MEDS ORDERED: lisinopriL 5 MG TABLET PO SCH (09:00)
[2021-06-03] MEDS ORDERED: (Patiromer Calcium Sorbitex [Veltassa] 8.4 GM) PO SCH (09:00)
[2021-06-03 10:30] VITALS: BP 171/64; PULSE 66; TEMP 98.6; O2SAT 100
[2021-06-04] MEDS ORDERED: levoFLOXacin 500 MG/100 ML 500 MG/100 ML BAG IVPB SCH (16:00)
== END 2021-06-03 12:39 | disposition home or self-care (01) | DRG 280 ==
LOC: 2ANU → SUATTDRO 03:08 → OBSVTOIN 03:08
PROVIDERS: ADMIT Internal Medicine; ATTEND Family Medicine

== ENCOUNTER 2022-02-20 14:14 | Observation (INO) ==
[2022-02-20] MEDS ORDERED: Naloxone 0.4 MG/ML INJ IVP PRN (17:34)
[2022-02-20] MEDS ORDERED: Ondansetron 4 MG/2 ML VIAL IVP PRN (17:34)
[2022-02-20] MEDS: Pantoprazole 40 MG VIAL IVP SCH (17:47)
[2022-02-20] MEDS ORDERED: Ipratropium/Albuterol Neb 3 ML IH PRN (18:03)
[2022-02-20] MEDS: Nicotine 14 MG PATCH.TD24 TD SCH (18:33)
[2022-02-20 19:09] LABS: Hematocrit 25.4 % (35.3-44.9); Hemoglobin 7.9 g/dL (11.5-15.4)
[2022-02-20 19:49] LABS: Calcium 8.1 mg/dL (8.6-10.3); Potassium 3.8 mEq/L (3.5-5.1); Troponin I 0.07 ng/mL (< 0.04)
[2022-02-20] MEDS: Acetaminophen 325 MG TABLET PO PRN (20:42)
[2022-02-20] MEDS ORDERED: *HR* LORazepam 2 MG/ML VIAL IVP ONE (22:25)
[2022-02-21 03:05] LABS: Basophils # 0.1 K/mcL (0.0-0.2); Basophils % 0.7 %; Eosinophils # 0.1 K/mcL (0.0-0.6); Eosinophils % 1.5 %; Hematocrit 27.9 % (35.3-44.9); Hemoglobin 8.5 g/dL (11.5-15.4); Immature Granulocytes % 0.3 % (0-4); Lymphocytes # 1.3 K/mcL (0.6-4.6); Lymphocytes % 17.4 %; Mean Corpuscular HGB Conc 30.5 g/dL (31.6-35.5); Mean Corpuscular Hemoglobin 33.1 pg (28.0-33.3); Mean Corpuscular Volume 108.6 fL (83.0-100.0); Mean Platelet Volume 10.2 fL (9.4-12.4); Monocytes # 0.7 K/mcL (0.0-1.3); Monocytes % 9.3 %; Neutrophils # 5.3 K/mcL (1.6-8.9); Platelet Count 286 K/mcL (140-400); Red Blood Count 2.57 M/mcL (3.82-4.97); Red Cell Distribution Width 21.2 % (11.5-14.5); Segmented Neutrophils % 70.8 %; White Blood Count 7.5 K/mcL (4.3-11.1)
[2022-02-21 03:13] LABS: Calcium 8.7 mg/dL (8.6-10.3); Magnesium 1.9 mg/dL (1.6-2.6); Potassium 3.7 mEq/L (3.5-5.1)
[2022-02-21] MEDS: Pantoprazole 40 MG VIAL IVP SCH ×2 (06:37→16:59)
[2022-02-21] MEDS: Renal Vitamin 1 CAP CAPSULE PO SCH (08:56)
[2022-02-21] MEDS: *HR* LORazepam 1 MG TABLET PO SCH ×2 (08:56→20:11)
[2022-02-21] MEDS: lisinopriL 5 MG TABLET PO SCH (08:56)
[2022-02-21] MEDS: Loratadine 10 MG TABLET PO SCH (08:57)
[2022-02-21] MEDS: Nicotine 14 MG PATCH.TD24 TD SCH (08:57)
[2022-02-21] MEDS: Calcium Acetate 667 MG CAPSULE PO SCH ×3 (08:58→16:59)
[2022-02-21] MEDS: carvediloL 25 MG TABLET PO SCH ×2 (10:50→16:59)
[2022-02-21] MEDS: Acetaminophen 325 MG TABLET PO PRN (10:50)
[2022-02-21] MEDS ORDERED: carvediloL 25 MG TABLET PO SCH (17:00)
[2022-02-21] MEDS: Melatonin 3 MG TABLET PO SCH (20:11)
[2022-02-22 01:38] LABS: Hematocrit 26.7 % (35.3-44.9); Hemoglobin 8.1 g/dL (11.5-15.4)
[2022-02-22 03:14] LABS: Calcium 9.1 mg/dL (8.6-10.3); Potassium 4.3 mEq/L (3.5-5.1)
[2022-02-22] MEDS: Pantoprazole 40 MG VIAL IVP SCH ×2 (06:47→17:05)
[2022-02-22] MEDS: *HR* LORazepam 1 MG TABLET PO SCH ×2 (07:54→20:31)
[2022-02-22] MEDS: carvediloL 25 MG TABLET PO SCH ×2 (07:55→17:03)
[2022-02-22] MEDS: lisinopriL 5 MG TABLET PO SCH (07:55)
[2022-02-22] MEDS: Loratadine 10 MG TABLET PO SCH (07:55)
[2022-02-22] MEDS: Renal Vitamin 1 CAP CAPSULE PO SCH (07:55)
[2022-02-22] MEDS: Calcium Acetate 667 MG CAPSULE PO SCH ×3 (07:55→17:05)
[2022-02-22] MEDS: Nicotine 14 MG PATCH.TD24 TD SCH (07:56)
[2022-02-22] MEDS ORDERED: SODIUM CHLORIDE/NAHCO3/KCL/PEG 4,000 ML SOLN.RECON PO ONE (13:47)
[2022-02-22] MEDS: Melatonin 3 MG TABLET PO SCH (20:31)
[2022-02-22] MEDS: Acetaminophen 325 MG TABLET PO PRN (21:20)
[2022-02-23 05:43] LABS: Hematocrit 26.7 % (35.3-44.9)
[2022-02-23 06:02] LABS: Calcium 9.2 mg/dL (8.6-10.3); Phosphorous 3.9 mg/dL (2.7-4.5); Potassium 4.8 mEq/L (3.5-5.1)
[2022-02-23] MEDS: Pantoprazole 40 MG VIAL IVP SCH (06:42)
[2022-02-23 07:31] VITALS: PULSE 81; O2SAT 91
[2022-02-23] MEDS ORDERED: Ethyl Chloride Spray Bottle (104 SPRAY/BOTTLE) TP PRN (08:10)
[2022-02-23] MEDS ORDERED: 0.9 % Sodium Chloride 250 ML IVC PRN (08:10)
[2022-02-23] MEDS ORDERED: 0.9 % Sodium Chloride 2,000 ML PRIME SCH (08:15)
[2022-02-23] MEDS: carvediloL 25 MG TABLET PO SCH (08:39)
[2022-02-23] MEDS: Calcium Acetate 667 MG CAPSULE PO SCH ×2 (08:39→12:42)
[2022-02-23] MEDS: lisinopriL 5 MG TABLET PO SCH (08:40)
[2022-02-23] MEDS: Nicotine 14 MG PATCH.TD24 TD SCH (08:48)
[2022-02-23] MEDS: Loratadine 10 MG TABLET PO SCH (08:48)
[2022-02-23] MEDS: Renal Vitamin 1 CAP CAPSULE PO SCH (08:48)
[2022-02-23] MEDS: *HR* LORazepam 1 MG TABLET PO SCH (08:48)
[2022-02-23 12:18] VITALS: BP 153/63
[2022-02-23 12:23] VITALS: TEMP 97.9
== END 2022-02-23 13:08 | disposition home or self-care (01) ==
LOC: 2ANU → SUATTDRO 16:55
PROVIDERS: ADMIT Family Medicine; ATTEND Family Medicine